=== PATIENT | male | born 1960 | race Caucasian/White ===

== ENCOUNTER 2020-01-13 13:33 | Inpatient (IN) | payer MEDICAID, SELFPAY ==
[2020-01-13 13:34] VITALS: BP 141/87; PULSE 97; RESP 18; TEMP 36.7; O2SAT 97; BMI 20.6
[2020-01-13 14:30] LABS: Add Urine Microscopic? NO
[2020-01-13 14:34] LABS: Urine Appearance Clear (CLEAR); Urine Color Yellow (Yellow)
[2020-01-13 14:35] LABS: Bilirubin Urine Neg (NEGATIVE); Blood Urine Neg (Negative); Glucose Urine UA Norm (Normal); Ketones Urine Negative (Negative); Leukocyte Esterase Urine Negative (Negative); Nitrate Urine Negative (Negative); Protein Urine Neg (Negative); Specific Gravity, Urine 1.015 (1.005-1.030); Urobilinogen Urine Norm (Negative); pH Urine 5 (5-7)
[2020-01-13 14:42] LABS: Amphetamines Screen Urine Negative (Negative); Barbiturates Screen Urine Negative (Negative); Benzodiazepines Screen Urine Negative (Negative); Cocaine Screen Urine Negative (Negative); Opiate Screen Urine Negative (Negative); PCP Screen Urine Negative (Negative); THC Screen Urine Positive (Negative)
[2020-01-13 14:53] LABS: Basophils # 0.1 10^3/uL (0.0-0.1); Basophils % 0.7 %; Eosinophils # 0.3 10^3/uL (0.0-0.8); Eosinophils % 1.8 %; Hematocrit 46.6 % (42.0-52.0); Hemoglobin 15.1 g/dL (11.7-16.6); Lymphocytes # 2.1 10^3/uL (0.8-4.8); Lymphocytes % 15.4 %; Mean Corpuscular HGB Conc 32.4 g/dL (30.0-36.0); Mean Corpuscular Hemoglobin 31.3 pg (28.0-34.0); Mean Corpuscular Volume 96.7 fL (80-94); Mean Platelet Volume 10.3 fL (7.4-10.4); Monocytes # 0.9 10^3/uL (0.2-0.9); Monocytes % 6.5 %; Neutrophils # 10.23 10^3/uL (1.8-7.7); Neutrophils % 75.2 %; Nucleated Red Blood Cells % 0 %; Platelet Count 303 10^3/cmm (130-400); Red Blood Count 4.82 10^6/uL (4.1-5.3); Red Cell Distribution Width 12.2 % (12.1-15.1); White Blood Count 13.6 10^3/uL (4.0-10.0)
[2020-01-13 15:14] LABS: Alanine Aminotransferase 23 U/L (0-41); Alkaline Phosphatase 87 IU/L (40-130); Anion Gap 14.2 (5-19); Aspartate Amino Transferase 22 U/L (0-40); Blood Urea Nitrogen 9 mg/dL (6-20); Calcium 9.3 mg/dL (8.5-10.5); Carbon Dioxide 27 mmol/L (22-29); Chloride 102 mmol/L (98-107); Creatinine Clr Calc Pharmacy 106.8314; Globulin 3.2 g/dL (1.3-4.6); Glomerular Filtration Rate 99.6 mL/min (90-130); Glucose 91 mg/dL (65-115); Osmolality Calculated 284 mOsm/kg (285-295); Potassium 4.2 mmol/L (3.5-5.1); Sodium 139 mmol/L (136-145); Total Bilirubin 0.6 mg/dL (0.15-1.2); Total Protein 7.2 g/dL (6.6-8.7)
[2020-01-13 15:22] LABS: Acetaminophen < 5.0 ug/mL (10-30); Alcohol Level < 10 mg/dL (0-10); Salicylate < 0.3 mg/dL (3-10)
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
[2020-01-13] MEDS: diclofenac 75 mg DR Tablet PO (15:39)
[2020-01-13 16:35] VITALS: BP 129/68; PULSE 76; RESP 18; O2SAT 97
[2020-01-13 16:39] VITALS: BP 129/68; PULSE 76; RESP 18; TEMP 36.7
[2020-01-13 19:43] VITALS: BP 119/79; PULSE 80; RESP 18; TEMP 36.8; O2SAT 97
[2020-01-13] MEDS: acetaminophen 325 mg Tablet 650 MG PO (21:00)
[2020-01-13] MEDS: warfarin 5 mg Tablet PO (22:02)
[2020-01-13] MEDS: atorvastatin 40 mg Tablet PO (22:03)
[2020-01-14 06:00] VITALS: BP 86/54; PULSE 71; RESP 16; TEMP 37; O2SAT 98
[2020-01-14] MEDS: metoprolol succinate ER (24 HR) 50 mg Tablet PO (08:38)
[2020-01-14] MEDS: aspirin 81 mg Chew Tablet PO (08:38)
[2020-01-14] MEDS: acetaminophen 325 mg Tablet 650 MG PO ×2 (10:35→15:13)
[2020-01-14] MEDS: fixodent 39 gm Tube 1 APPLIC DENTAL (10:37)
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
[2020-01-14 14:00] VITALS: BP 108/72; PULSE 93; RESP 19; TEMP 36.7; O2SAT 96
[2020-01-14] MEDS: atorvastatin 40 mg Tablet PO (21:09)
[2020-01-14] MEDS: warfarin 5 mg Tablet PO (21:10)
[2020-01-14] MEDS: trazodone 50 mg Tablet PO (21:10)
[2020-01-14] MEDS: hyDROXYzine 25 mg Capsule 50 MG PO (21:10)
[2020-01-14 21:28] VITALS: BP 104/61; PULSE 66; RESP 17; TEMP 37.2; O2SAT 96
[2020-01-14 21:30] LABS: INR 1.46 (0.8-1.2)
[2020-01-15 06:00] VITALS: BP 114/64; PULSE 62; RESP 17; TEMP 36.9; O2SAT 95
[2020-01-15] MEDS: metoprolol succinate ER (24 HR) 50 mg Tablet PO (08:08)
[2020-01-15] MEDS: aspirin 81 mg Chew Tablet PO (08:08)
[2020-01-15] MEDS: acetaminophen 325 mg Tablet 650 MG PO ×2 (09:44→18:12)
[2020-01-15 14:00] VITALS: BP 128/84; PULSE 67; RESP 18; TEMP 37; O2SAT 97
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
[2020-01-15 20:14] VITALS: BP 104/67; PULSE 69; RESP 18; TEMP 36.6; O2SAT 96
[2020-01-15] MEDS: atorvastatin 40 mg Tablet PO (20:25)
[2020-01-16 06:00] VITALS: BP 111/71; PULSE 69; RESP 16; TEMP 36.5; O2SAT 96
[2020-01-16] MEDS: metoprolol succinate ER (24 HR) 50 mg Tablet PO (08:01)
[2020-01-16] MEDS: aspirin 81 mg Chew Tablet PO (08:01)
--- NOTE | 2020-01-16 13:54 | P.PN_ITS ---
Subjective NPU Subjective: Interval history: Sukhwinder presents today reporting that he is doing okay. He had some very in depth and significant conversations with social work team and the therapist regarding his circumstances and some significant challenges that exists in his life in relation to his relationship with his daughter and them reconciling, issues that they have had in the past secondary to his behaviors which he takes responsibility for. He is very contrite and is desirous of a place where he can unpack this in a healthy safe way. He is reporting some diminishing of his suicidal thinking, but otherwise he is feeling very pessimistic about his options moving forward and probably with good reason. Mental Status Exam MSE Comments: This is a slender, white male, looking younger than his stated age, with adequate dress and grooming, and limited eye contact. No abnormal movements, except for improving psychomotor retardation. Cooperative with exam in no acute distress. Speech was more normal rate and volume. Mood described as okay; affect congruent. Thought process, organized. Thought content: patient reports that he feels suicidal all the time, but today isn't too bad, he endorse s that he feels less homicidal, there were no delusions reported or noted, he denied any auditory or visual hallucinations. Attention and concentration were intact and memory appeared reliable, but none were formally tested. He is alert and oriented times three. Insight and judgment are limited, but improving. Impulse control is improving. Vitals/I&O/Wt Last Vital Signs Temp 97.9 F 01/16/20 21:18 Pulse 63 01/16/20 21:18 Resp 19 H 01/16/20 21:18 BP 111/75 01/16/20 21:18 Pulse Ox 97 01/16/20 21:18 Data NPU : 01/13/20 14:39 01/13/20 14:39 A&P Additional A&P Information (1) Suicidal ideation: (2) Major depressive disorder: (3) Anxiety: (4) PTSD (post-traumatic stress disorder): This is a 59 year old, white male, with a reported six year history of depression with some likely post-traumatic stress disorder symptoms that dated further back, but he denies any treatment, he denies any success with medication and is resistant to taking medication, with no desire to start medication and hope to be referred to a mental health facility that could provide him a medical terminologist therapist, and obviously a need for some stabilization at some kind of skilled nursing or other living arrangement. Continue current medication and continue to offer antidepressant therapy. Encourage individual, group, and milieu therapy. Continue q-15 minute checks for safety. Recommend sober living treatment at the highest level of care to which he is joey ling to commit Involuntary Hold Information 96 Hour Hold: 96 Hour Involuntary Admission: No Attestations NPU Medical Necessity Statement*: Inpatient hospitalization is medically necessary and the clinically appropriate intervention at this time. We will monitor medications and make adjustments as indicated and continue to offer appropriate medications. Likely length of stay is 1-3 days. Coding Level of Care Code Acute Veterinary Receptionist for Christel Fabian
[2020-01-16 14:00] VITALS: BP 114/76; PULSE 71; RESP 18; TEMP 36.6; O2SAT 96
[2020-01-16 21:18] VITALS: BP 111/75; PULSE 63; RESP 19; TEMP 36.6; O2SAT 97
[2020-01-17] MEDS: atorvastatin 40 mg Tablet PO ×2 (01:48→20:19)
[2020-01-17] MEDS: warfarin 5 mg Tablet PO ×2 (01:49→20:19)
--- NOTE | 2020-01-17 01:50 | PC.NURSE ---
meds were given at 2100 they did not scan / mis-scan.
[2020-01-17 06:00] VITALS: BP 105/60; PULSE 68; RESP 15; TEMP 36.8; O2SAT 97
[2020-01-17] MEDS: aspirin 81 mg Chew Tablet PO (08:47)
[2020-01-17] MEDS: metoprolol succinate ER (24 HR) 50 mg Tablet PO (08:47)
--- NOTE | 2020-01-17 10:44 | PM.NPN ---
Subjective NPU Subjective: Interval history: Sukhwinder presents today reporting that he has worked with the treatment team and that there are not a lot of options out there. He is fairly frustrated, but understands that is a situation that he is in. We discussed a plan to continue attempts to find an option today, but that if all else fails tomorrow, we will discharge him to a group home in [place]. We discussed the importance of him following up. We once again discussed the risks, benefits, and alternatives of trying a medication and he understood and again reinforced his position on not having medication, though he did understand and agree to proceed as is documented in this note. Mental Status Exam MSE Comments: This is a slender, white male, looking younger than his stated age, with adequate dress and grooming, and limited eye contact. No abnormal movements, except for improving psychomotor retardation. Cooperative with exam in no acute distress. Speech was more normal rate and volume. Mood described as better; affect congruent. Thought process, organized. Thought content: patient reports that he feels suicidal all the time, but much less, he denied homicidal ideation, there were no delusions reported or noted, he denied any auditory or visual hallucinations. Attention and concentration were intact and memory appeared reliable, but none were formally tested. He is alert and oriented times three. Insight and judgment are limited, but improving. Impulse control is improving. Vitals/I&O/Wt Last Vital Signs Temp 98.3 F 01/17/20 06:00 Pulse 68 01/17/20 06:00 Resp 15 01/17/20 06:00 BP 105/60 01/17/20 06:00 Pulse Ox 97 01/17/20 06:00 Data NPU : 01/13/20 14:39 01/13/20 14:39 A&P Additional A&P Information (1) Suicidal ideation: (2) Major depressive disorder: (3) Anxiety: (4) PTSD (post-traumatic stress disorder): This is a 59 year old, white male, with a reported six year history of depression with some likely post-traumatic stress disorder symptoms that dated further back, but he denies any treatment, he denies any success with medication and is resistant to taking medication, with no desire to start medication and hope to be referred to a mental health facility that could provide him a care home therapist, and obviously a need for some stabilization at some kind of group home or other living arrangement. Continue current medication and continue to offer antidepressant therapy. Encourage individual, group, and milieu therapy. Continue q-15 minute checks for safety. Recommend sober living treatment at the highest level of care to which he is willing to commit, or other program to assist with his emotional challenges. Involuntary Hold Information 96 Hour Hold: 96 Hour Involuntary Admission: No Attestations NPU Medical Necessity Statement*: Inpatient hospitalization is medically necessary and the clinically appropriate intervention at this time. We will monitor medications and make adjustments as indicated and continue to offer appropriate medications. Likely length of stay is 1-2 days. Plan for discharge tomorrow. Coding Level of Care Code Acute Fire Support Specialist for Christel Fabian
[2020-01-17 14:00] VITALS: BP 101/63; PULSE 76; RESP 18; TEMP 36.7; O2SAT 96
[2020-01-17 20:38] VITALS: BP 122/75; PULSE 70; RESP 15; TEMP 36.8; O2SAT 97
[2020-01-17] MEDS: alum-mag-hydroxide-sime 30 mL UDC PO (21:41)
[2020-01-18 06:00] VITALS: BP 137/92; PULSE 79; RESP 16; TEMP 36.7; O2SAT 96
[2020-01-18] MEDS: metoprolol succinate ER (24 HR) 50 mg Tablet PO (08:47)
[2020-01-18] MEDS: aspirin 81 mg Chew Tablet PO (08:47)
[2020-01-18 12:04] VITALS: BP 137/92; PULSE 79; RESP 16; TEMP 36.7; O2SAT 96
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
== END 2020-01-18 16:00 | disposition home or self-care (01) | DRG 880 ==
LOC: ER 15:41 → NP 16:00
PROVIDERS: Admitting Provider Psychiatry & Neurology Psychiatry; Emergency Provider Family Medicine; PCP Family Medicine; Visit Provider Psychiatry & Neurology Psychiatry
DX: F41.8 Other specified anxiety disorders (principal); R45.851 Suicidal ideations; F43.11 Post-traumatic stress disorder, acute; R45.850 Homicidal ideations; Z91.5 Personal history of self-harm; F17.210 Nicotine dependence, cigarettes, uncomplicated; Z79.01 Long term (current) use of anticoagulants; Z79.82 Long term (current) use of aspirin; I25.10 Atherosclerotic heart disease of native coronary artery without angina pectoris; Z95.1 Presence of aortocoronary bypass graft; I35.0 Nonrheumatic aortic (valve) stenosis
CPT/HCPCS: 12345; 36415; 80053; 80306; 80307; 81003; 85025; 85610; 99284

== ENCOUNTER 2020-10-07 09:35 | Outpatient (CLI) | payer MEDICAID, SELFPAY ==
--- NOTE | 2020-10-07 | XRR_ITS ---
PROCEDURE INFORMATION: Exam: XR Left Knee Exam date and time: 10/07/2020 10:17 AM Age: 59 years old Clinical indication: Pain; Knee; Bilateral; Additional info: Bilateral knee joint pain TECHNIQUE: Imaging protocol: XR Left knee. Views: 4 or more views. COMPARISON: No relevant prior studies available. FINDINGS: Bones/joints: Prominent chondrocalcinosis, with mild degenerative change and small joint effusion. Soft tissues: Unremarkable. Other findings: Anatomic alignment. XR/XR knee LT 4V [id number] IMPRESSION: Prominent chondrocalcinosis, with mild degenerative change and small joint effusion.
--- NOTE | 2020-10-07 | XRR_ITS ---
PROCEDURE INFORMATION: Exam: XR Right Knee Exam date and time: 10/07/2020 10:17 AM Age: 59 years old Clinical indication: Pain; Knee; Bilateral; Additional info: Bilateral knee joint pain TECHNIQUE: Imaging protocol: XR Right knee. Views: 3 views. COMPARISON: No relevant prior studies available. FINDINGS: Bones/joints: Prominent chondrocalcinosis, along with mild degenerative change and small joint effusion. Soft tissues: Surgical clips. Other findings: Anatomic alignment. XR/XR knee RT 4V [id number] IMPRESSION: Prominent chondrocalcinosis, along with mild degenerative change and small joint effusion.
== END 2020-10-07 09:36 | disposition home or self-care (01) ==
LOC: RAD 09:44
PROVIDERS: PCP Family Medicine; Visit Provider Family Medicine
DX: M25.561 Pain in right knee (principal); M25.562 Pain in left knee; M11.261 Other chondrocalcinosis, right knee; M11.262 Other chondrocalcinosis, left knee
CPT/HCPCS: 73564

== ENCOUNTER 2020-10-18 11:05 | Outpatient (CLI) | payer MEDICAID, SELFPAY ==
--- NOTE | 2020-10-18 11:09 | CT_ITS ---
WS: [id number] LDCT LUNG CANCER SCREENING TECHNIQUE: Noncontrast CT of the chest with coronal and sagittal reformatted images. CLINICAL INFORMATION: NICOTINE DEPENDENCE COMPARISON: None. DLP: 60.92 mGy.cm DIvol: 1.[address] scans at [facility] use at least one of these dose optimization techniques: automat ed exposure control; mA and/or kV adjustment per patient size (includes targeted exams where dose is matched to clinical indication); or iterative reconstruction. FINDINGS: Mild chronic emphysematous changes. No suspicious pulmonary parenchymal opacities. No acute pulmonary infiltrates. Sternotomy. Aortic calcification. No mediastinal or hilar lymphadenopathy. No axillary lymphadenopathy. Right renal cyst partially visualized. Adrenal glands are normal. CT/CT lung screening [id number] IMPRESSION: LUNG-RADS: 1-Negative FOLLOW UP: 12 Month: Continue annual screening with LDCT
== END 2020-10-18 11:06 | disposition home or self-care (01) ==
LOC: RAD 11:07
PROVIDERS: PCP Family Medicine; Visit Provider Family Medicine
DX: Z12.2 Encounter for screening for malignant neoplasm of respiratory organs (principal); F17.210 Nicotine dependence, cigarettes, uncomplicated
CPT/HCPCS: 71271

== ENCOUNTER 2020-12-24 01:49 | Emergency (ER) | payer MEDICAID, SELFPAY ==
[2020-12-24 02:16] VITALS: BP 132/87; PULSE 115; RESP 18; TEMP 36.7; O2SAT 94; BMI 21.7
[2020-12-24 03:00] LABS: Specific Gravity, Urine 1.005 (1.005-1.030); Urine Appearance Cloudy (CLEAR); Urine Color Red (Yellow); pH Urine 6.5 (5-7)
[2020-12-24 03:01] LABS: Add Urine Culture? Yes; Add Urine Microscopic? YES; Bacteria Urine TRACE /hpf; Bilirubin Urine Neg (Negative); Blood Urine 3+ (Negative); Glucose Urine UA Norm (Normal); Ketones Urine Negative (Negative); Leukocyte Esterase Urine Negative (Negative); Nitrate Urine Negative (Negative); Protein Urine 2+ (Negative); RBC Urine TOO NUMEROUS TO CNT /hpf (0-2); Squamous Epithelial Cell Urine 0-4 /hpf (0-5); Urobilinogen Urine Norm (Negative); WBC Urine 0-4 /hpf (0-5)
--- NOTE | 2020-12-24 03:04 | CTR_ITS ---
PROCEDURE INFORMATION: Exam: CT Abdomen And Pelvis Without Contrast Exam date and time: 12/24/2020 3:04 AM Age: 60 years old Clinical indication: Abdominal pain; Flank; Right; Additional info: RT flank pain, hematuria TECHNIQUE: Imaging protocol: Computed tomography of the abdomen and pelvis without contrast. Radiation optimization: All CT scans at this facility use at least one of these dose optimization techniques: automated exposure control; mA and/or kV adjustment per patient size (includes targeted exams where dose is matched to clinical indication); or iterative reconstruction. COMPARISON: CT lung screening [id number] 10/18/2020 11:35 AM RADIATION DOSE METRICS: Total DLP (mGy-cm): 670.01 FINDINGS: Liver: Normal. No mass. Gallbladder and bile ducts: The gallbladder is partially contracted. No biliary ductal dilatation. No calculi. Pancreas: Normal. No ductal dilation. Spleen: Normal. No splenomegaly. Adrenal glands: Normal. No mass. Kidneys and ureters: Mild right hydronephrosis and hydroureter. Right renal 4.1 mm probable benign cyst. Stomach and bowel: Sigmoid, descending and distal transverse colonic diverticula are present without evidence of diverticulitis. Appendix: The vermiform appendix is normal. Intraperitoneal space: No free air. No significant fluid collection. Vasculature: The iliac arteries show moderate bilateral atherosclerotic calcifications without evidence of aneurysm. Atherosclerotic calcifications are present involving the RCA coronary artery. Moderate aortic atherosclerotic calcification with infrarenal abdominal aortic ectasia to 2.7 cm. Lymph nodes: No enlarged lymph nodes. Urinary bladder: Unremarkable as visualized. Reproductive: The prostate gland demonstrates nonspecific parenchymal calcifications. Bones/joints: L5-S1 moderate spondylosis. Diffuse osteopenia. Soft tissues: Unremarkable. CT/CT kidney stone [id number] IMPRESSION: 1. Mild right hydronephrosis and hydroureter. No obstructing calculus identified. Differential diagnosis includes recently passed calculi, and non-opaque obstructing material (hemorrhage, purulence, nonopaque calculus). 2. Right renal probable benign cyst. No follow-up imaging is recommended. 3. Diverticulosis. 4. Chronic calcific prostatitis. 5. Coronary atherosclerosis. COMMENTS: Consistent with the [employer]'s Incidental Findings Committee white paper (J Am Shannan Radiol 2018): Any incidental renal lesion less than 1 cm or classified as too small to characterize, or any incidental cystic renal lesion characterized as simple-appearing, is likely benign. No follow-up imaging is recommended for these lesions per consensus recommendations based on imaging criteria. Radiation Dose CTDIVOL = (mGy): DLP = 670.01 (mGy-cm)
[2020-12-24 04:39] LABS: Basophils # 0.1 10^3/uL (0.0-0.1); Basophils % 0.8 %; Eosinophils # 0.3 10^3/uL (0.0-0.8); Eosinophils % 2.5 %; Hematocrit 45.9 % (42.0-52.0); Hemoglobin 14.8 g/dL (11.7-16.6); Lymphocytes # 2.1 10^3/uL (0.8-4.8); Lymphocytes % 15.9 %; Mean Corpuscular HGB Conc 32.2 g/dL (30.0-36.0); Mean Corpuscular Hemoglobin 30.9 pg (28.0-34.0); Mean Corpuscular Volume 95.8 fL (80-94); Monocytes # 0.9 10^3/uL (0.2-0.9); Neutrophils # 9.79 10^3/uL (1.8-7.7); Neutrophils % 73.2 %; Nucleated Red Blood Cells % 0 %; Platelet Count 572 10^3/cmm (130-400); Red Blood Count 4.79 10^6/uL (4.1-5.3); Red Cell Distribution Width 12.5 % (12.1-15.1); White Blood Count 13.4 10^3/uL (4.0-10.0)
[2020-12-24 04:48] LABS: INR 4.33 (0.8-1.2)
[2020-12-24 04:49] LABS: Partial Thromboplastin Time 68.5 SECONDS (23.9-36.7)
[2020-12-24 04:54] LABS: Alanine Aminotransferase 31 U/L (0-41); Albumin Level 3.3 g/dL (3.5-5.2); Alkaline Phosphatase 119 IU/L (40-130); Anion Gap 12.7 (5-19); Aspartate Amino Transferase 29 U/L (0-40); Blood Urea Nitrogen 10 mg/dL (6-20); Calcium 8.6 mg/dL (8.5-10.5); Carbon Dioxide 27 mmol/L (22-29); Chloride 101 mmol/L (98-107); Globulin 4.4 g/dL (1.3-4.6); Glomerular Filtration Rate 115.8 mL/min (90-130); Glucose 105 mg/dL (65-115); Osmolality Calculated 281 mOsm/kg (285-295); Potassium 4.7 mmol/L (3.5-5.1); Sodium 136 mmol/L (136-145); Total Bilirubin 0.2 mg/dL (0.15-1.2); Total Protein 7.7 g/dL (6.6-8.7)
--- NOTE | 2020-12-24 04:54 | W.ED.BACK ---
Documented by User: Aristides Bermudez DO 12/29/20 15:21 HPI - Back Pain/Injury General: Chief Complaint: Back Pain/Injury Stated Complaint: Urinating Blood\Pain RT Side Time Seen by Provider: 12/24/20 03:05 History of Present Illness: HPI Narrative: 60-year-old male presents emergency room with complaint of right flank pain and hematuria that began around midnight this evening. Patient is on Coumadin. Denies any fever sweats or chills. MD elicited complaint: back pain Onset (ago): hour(s) Timing: constant Severity: moderate Quality: sharp Radiation: none Exacerbating factors: none Relieving factors: none Associated symptoms: Reports abdominal pain and hematuria; Deny arthralgias, chills, change in bowel habits, difficulty walking, dysuria, fatigue, fecal incontinence, fever(s), myalgias, nausea, numbness, syncope, tingling/numbness/burning, urinary frequency, urinary urgency, vomiting or weakness Review of Systems Const: Denies: fever(s), chills or fatigue ENMT: Denies: throat pain, ear or mastoid pain, nasal discharge or nasal congestion Card: Denies: syncope Resp: Denies: dyspnea, productive cough or non-productive cough GI: Reports: abdominal pain; Denies: nausea, vomiting, fecal incontinence or change in bowel habits : Reports: hematuria; Denies: dysuria or urinary urgency Skin/Breast: Denies: rash or pruritus Neuro: Denies: difficulty walking PFSH ED PFSH: Medical History Aortic stenosis Coronary artery disease Surgical History H/O aortic valvuloplasty Hx of CABG Physical Exam Const: COMMON NORMALS: no acute distress GENERAL APPEARANCE: cooperative and comfortable ORIENTATION/CONSCIOUSNESS: Yes awake, Yes oriented to person, Yes oriented to place and Yes oriented to time HENMT: COMMON NORMALS: normocephalic, atraumatic and hearing grossly normal bilaterally HEAD & SCALP: normocephalic and atraumatic Neck/C-Spine: COMMON NORMALS: no JVD Resp: COMMON NORMALS: normal respiratory effort, No retractions, No use of accessory muscles and clear to auscultation bilaterally AUSCULTATION: clear to auscultation bilaterally Cardio: COMMON NORMALS: no JVD, regular rate, regular rhythm and No murmurs present (Cardio) RATE: regular rate RHYTHM: regular rhythm GI: COMMON NORMALS: Soft to palpation and No hepatosplenomegaly present AUSCULTATION: Yes normoactive bowel sounds PALPATION: Yes Soft to palpation, No Tenderness to palpation present (GI), No Guarding due to palpation present (GI) and Yes No hepatosplenomegaly present Extremity: COMMON NORMALS: normal to inspection, capillary refill normal, no clubbing, cyanosis or edema, no calf tenderness and no pedal edema Neuro: SENSORIUM/ORIENTATION: Yes oriented to person, Yes oriented to place and Yes oriented to time Skin: COMMON NORMALS: no rashes or lesions noted GENERAL SKIN EXAM: no rashes or lesions noted Course Vital Signs: Vital signs: Vital Signs Temperature 98.1 F 12/24/20 02:16 Pulse Rate 115 H 12/24/20 08:08 Respiratory Rate 18 12/24/20 02:16 Blood Pressure 132/87 12/24/20 08:08 Pulse Oximetry 94 12/24/20 08:08 MDM - Back Pain/Injury MDM Narrative: Medical decision making narrative: Turned over Dr. Barraza at change shift see his notes from diagnosis disposition Lab Data: Labs: Lab Results 12/24/20 12/24/20 12/24/20 Range/Units 02:33 04:28 04:28 WBC 13.4 H (4.0-10.0) 10^3/ uL RBC 4.79 (4.1-5.3) 10^6/u L Hgb 14.8 (11.7-16.6) g/dL Hct 45.9 (42.0-52.0) % MCV 95.8 H (80-94) fL MCH 30.9 (28.0-34.0) pg MCHC 32.2 (30.0-36.0) g/dL RDW 12.5 (12.1-15.1) % Plt Count 572 H (130-400) 10^3/c mm MPV 10.0 (7.4-10.4) fL Neut % (Auto) 73.2 % Lymph % (Auto) 15.9 % [place] % (Auto) 7.0 % Eos % (Auto) 2.5 % Baso % (Auto) 0.8 % Neut # (Auto) 9.79 H (1.8-7.7) 10^3/u L Lymph # (Auto) 2.1 (0.8-4.8) 10^3/u L [place] # (Auto) 0.9 (0.2-0.9) 10^3/u L Eos # (Auto) 0.3 (0.0-0.8) 10^3/u L Baso # (Auto) 0.1 (0.0-0.1) 10^3/u L Nucleated RBC % (a uto) 0 % Nucleated RBCs # 0.0 /100WBC PT 42.10 H (12.1-14.9) SECO NDS INR 4.33 H (0.8-1.2) APTT 68.5 H (23.9-36.7) SECO NDS Sodium (136-145) mmol/L Potassium (3.5-5.1) mmol/L Chloride (98-107) mmol/L Carbon Dioxide (22-29) mmol/L Anion Gap (5-19) BUN (6-20) mg/dL Creatinine (0.7-1.2) mg/dL GFR Calculation (90-130) mL/min Glucose (65-115) mg/dL Calculated Osmolal ity (285-295) mOsm/k g Calcium (8.5-10.5) mg/dL Total Bilirubin (0.15-1.2) mg/dL AST (0-40) U/L ALT (0-41) U/L Alkaline Phosphata se (40-130) IU/L Total Protein (6.6-8.7) g/dL Albumin (3.5-5.2) g/dL Globulin (1.3-4.6) g/dL Urine Color Red (Yellow) Urine Appearance Cloudy (CLEAR) Urine pH 6.5 (5-7) Ur Specific Gravit y 1.005 (1.005-1.030) Urine Protein 2+ H (Negative) Urine Glucose (UA) Norm (Normal) Urine Ketones Negative (Negative) Urine Blood 3+ H (Negative) Urine Nitrate Negative (Negative) Urine Bilirubin Neg (Negative) Urine Urobilinogen Norm (Negative) mg/dL Ur Leukocyte Deanna ase Negative (Negative) Urine RBC Too numerous to c nt H (0-2) /hpf Urine WBC 0-4 H (0-5) /hpf Ur Squamous Epith Cells 0-4 H (0-5) /hpf Amorphous Sediment Not Reportable Urine Bacteria Trace (NONE) /hpf 12/24/20 Range/Units 04:28 WBC (4.0-10.0) 10^3/ uL RBC (4.1-5.3) 10^6/u L Hgb (11.7-16.6) g/dL Hct (42.0-52.0) % MCV (80-94) fL MCH (28.0-34.0) pg MCHC (30.0-36.0) g/dL RDW (12.1-15.1) % Plt Count (130-400) 10^3/c mm MPV (7.4-10.4) fL Neut % (Auto) % Lymph % (Auto) % [place] % (Auto) % Eos % (Auto) % Baso % (Auto) % Neut # (Auto) (1.8-7.7) 10^3/u L Lymph # (Auto) (0.8-4.8) 10^3/u L [place] # (Auto) (0.2-0.9) 10^3/u L Eos # (Auto) (0.0-0.8) 10^3/u L Baso # (Auto) (0.0-0.1) 10^3/u L Nucleated RBC % (a uto) % Nucleated RBCs # /100WBC PT (12.1-14.9) SECO NDS INR (0.8-1.2) APTT (23.9-36.7) SECO NDS Sodium 136 (136-145) mmol/L Potassium 4.7 (3.5-5.1) mmol/L Chloride 101 (98-107) mmol/L Carbon Dioxide 27 (22-29) mmol/L Anion Gap 12.7 (5-19) BUN 10 (6-20) mg/dL Creatinine 0.7 (0.7-1.2) mg/dL GFR Calculation 115.8 (90-130) mL/min Glucose 105 (65-115) mg/dL Calculated Osmolal ity 281 L (285-295) mOsm/k g Calcium 8.6 (8.5-10.5) mg/dL Total Bilirubin 0.2 (0.15-1.2) mg/dL AST 29 (0-40) U/L ALT 31 (0-41) U/L Alkaline Phosphata se 119 (40-130) IU/L Total Protein 7.7 (6.6-8.7) g/dL Albumin 3.3 L (3.5-5.2) g/dL Globulin 4.4 (1.3-4.6) g/dL Urine Color (Yellow) Urine Appearance (CLEAR) Urine pH (5-7) Ur Specific Gravit y (1.005-1.030) Urine Protein (Negative) Urine Glucose (UA) (Normal) Urine Ketones (Negative) Urine Blood (Negative) Urine Nitrate (Negative) Urine Bilirubin (Negative) Urine Urobilinogen (Negative) mg/dL Ur Leukocyte Deanna ase (Negative) Urine RBC (0-2) /hpf Urine WBC (0-5) /hpf Ur Squamous Epith Cells (0-5) /hpf Amorphous Sediment Urine Bacteria (NONE) /hpf Discharge Plan Discharge Patient Disposition: Home Clinical Impression: Kidney stone, Elevated INR Condition: Stable Prescriptions: No Action warfarin 7.5 mg Tablet 7.5 mg PO MoFr@2100 30 Days Qty: 9 RF: 1 atorvastatin 40 mg tablet 40 mg PO DAILY 30 Days Qty: 30 RF: 1 metoprolol succinate 50 mg tablet extended release 24 hr 50 mg PO DAILY 30 Days Qty: 30 RF: 1 warfarin 5 mg tablet See Rx Instructions .ROUTE .COMPLEX 30 Days Qty: 22 RF: 1 aspirin 81 mg Tablet,Chewable 81 mg PO DAILY 30 Days Qty: 30 RF: 1 Discharge Orders: Discharge ED (Routine); Ordered 12/24/20 Ordered By: Bj Barraza Referrals: Ulises Gonzalez MD [Primary Care Provider] - Discharge Diet: Advance as tolerated Discharge Activity: Resume usual activity Patient Instructions: Opioid Safety Activity Restrictions/Additional Instructions: Encourage p.o. fluids. Hold Coumadin dose tonight and tomorrow take half dose. Follow-up with primary care physician for an INR check within 3 days. Continue all other home medications. Sign Out Sign Out Data: Patient Sign Out occurred on 12/24/20 at 06:11. Patient's care was discussed, and care was transferred from to Bj Barraza MD. Coding Level of Care Code ED Microfilming Document Preparer for Christel Fwd Documented by User: Bj Barraza MD 12/24/20 07:42 HPI - Back Pain/Injury General: Chief Complaint: Back Pain/Injury Stated Complaint: Urinating Blood\Pain RT Side Time Seen by Provider: 12/24/20 03:05 History of Present Illness: HPI Narrative: This is a 60-year-old male with presented to the emergency department complaining of flank pain. [facility] ED PFSH: Medical History Aortic stenosis Coronary artery disease Surgical History H/O aortic valvuloplasty Hx of CABG Course Reevaluation(s): Reevaluation #1: I did discuss at length with patient about findings. Consistent with recent passage of a kidney stone. Patient is pain-free at this time. Patient's INR is elevated. Patient will hold Coumadin for 24 hours within the will take one half dose on second day and then follow-up with primary care physician for repeat INR. Patient will be discharged home patient states understanding. Time: 07:38 Vital Signs: Vital signs: Vital Signs Temperature 98.1 F 12/24/20 02:16 Pulse Rate 115 H 12/24/20 08:08 Respiratory Rate 18 12/24/20 02:16 Blood Pressure 132/87 12/24/20 08:08 Pulse Oximetry 94 12/24/20 08:08 MDM - Back Pain/Injury MDM Narrative: Medical decision making narrative: I did discuss at length with patient about findings. Consistent with recent passage of a kidney stone. Patient is pain-free at this time. Patient's INR is elevated. Patient will hold Coumadin for 24 hours within the will take one half dose on second day and then follow-up with primary care physician for repeat INR. Patient will be discharged home patient states understanding. Medical Records: Attestation: I reviewed the patient's medical records. Lab Data: Attestation: I reviewed the patient's lab results. Labs: Lab Results 12/24/20 12/24/20 12/24/20 Range/Units 02:33 04:28 04:28 WBC 13.4 H (4.0-10.0) 10^3/ uL RBC 4.79 (4.1-5.3) 10^6/u L Hgb 14.8 (11.7-16.6) g/dL Hct 45.9 (42.0-52.0) % MCV 95.8 H (80-94) fL MCH 30.9 (28.0-34.0) pg MCHC 32.2 (30.0-36.0) g/dL RDW 12.5 (12.1-15.1) % Plt Count 572 H (130-400) 10^3/c mm MPV 10.0 (7.4-10.4) fL Neut % (Auto) 73.2 % Lymph % (Auto) 15.9 % [place] % (Auto) 7.0 % Eos % (Auto) 2.5 % Baso % (Auto) 0.8 % Neut # (Auto) 9.79 H (1.8-7.7) 10^3/u L Lymph # (Auto) 2.1 (0.8-4.8) 10^3/u L [place] # (Auto) 0.9 (0.2-0.9) 10^3/u L Eos # (Auto) 0.3 (0.0-0.8) 10^3/u L Baso # (Auto) 0.1 (0.0-0.1) 10^3/u L Nucleated RBC % (a uto) 0 % Nucleated RBCs # 0.0 /100WBC PT 42.10 H (12.1-14.9) SECO NDS INR 4.33 H (0.8-1.2) APTT 68.5 H (23.9-36.7) SECO NDS Sodium (136-145) mmol/L Potassium (3.5-5.1) mmol/L Chloride (98-107) mmol/L Carbon Dioxide (22-29) mmol/L Anion Gap (5-19) BUN (6-20) mg/dL Creatinine (0.7-1.2) mg/dL GFR Calculation (90-130) mL/min Glucose (65-115) mg/dL Calculated Osmolal ity (285-295) mOsm/k g Calcium (8.5-10.5) mg/dL Total Bilirubin (0.15-1.2) mg/dL AST (0-40) U/L ALT (0-41) U/L Alkaline Phosphata se (40-130) IU/L Total Protein (6.6-8.7) g/dL Albumin (3.5-5.2) g/dL Globulin (1.3-4.6) g/dL Urine Color Red (Yellow) Urine Appearance Cloudy (CLEAR) Urine pH 6.5 (5-7) Ur Specific Gravit y 1.005 (1.005-1.030) Urine Protein 2+ H (Negative) Urine Glucose (UA) Norm (Normal) Urine Ketones Negative (Negative) Urine Blood 3+ H (Negative) Urine Nitrate Negative (Negative) Urine Bilirubin Neg (Negative) Urine Urobilinogen Norm (Negative) mg/dL Ur Leukocyte Deanna ase Negative (Negative) Urine RBC Too numerous to c nt H (0-2) /hpf Urine WBC 0-4 H (0-5) /hpf Ur Squamous Epith Cells 0-4 H (0-5) /hpf Amorphous Sediment Not Reportable Urine Bacteria Trace (NONE) /hpf 12/24/ Range/Units 04:28 WBC (4.0-10.0) 10^3/ uL RBC (4.1-5.3) 10^6/u L Hgb (11.7-16.6) g/dL Hct (42.0-52.0) % MCV (80-94) fL MCH (28.0-34.0) pg MCHC (30.0-36.0) g/dL RDW (12.1-15.1) % Plt Count (130-400) 10^3/c mm MPV (7.4-10.4) fL Neut % (Auto) % Lymph % (Auto) % [place] % (Auto) % Eos % (Auto) % Baso % (Auto) % Neut # (Auto) (1.8-7.7) 10^3/u L Lymph # (Auto) (0.8-4.8) 10^3/u L [place] # (Auto) (0.2-0.9) 10^3/u L Eos # (Auto) (0.0-0.8) 10^3/u L Baso # (Auto) (0.0-0.1) 10^3/u L Nucleated RBC % (a uto) % Nucleated RBCs # /100WBC PT (12.1-14.9) SECO NDS INR (0.8-1.2) APTT (23.9-36.7) SECO NDS Sodium 136 (136-145) mmol/L Potassium 4.7 (3.5-5.1) mmol/L Chloride 101 (98-107) mmol/L Carbon Dioxide 27 (22-29) mmol/L Anion Gap 12.7 (5-19) BUN 10 (6-20) mg/dL Creatinine 0.7 (0.7-1.2) mg/dL GFR Calculation 115.8 (90-130) mL/min Glucose 105 (65-115) mg/dL Calculated Osmolal ity 281 L (285-295) mOsm/k g Calcium 8.6 (8.5-10.5) mg/dL Total Bilirubin 0.2 (0.15-1.2) mg/dL AST 29 (0-40) U/L ALT 31 (0-41) U/L Alkaline Phosphata se 119 (40-130) IU/L Total Protein 7.7 (6.6-8.7) g/dL Albumin 3.3 L (3.5-5.2) g/dL Globulin 4.4 (1.3-4.6) g/dL Urine Color (Yellow) Urine Appearance (CLEAR) Urine pH (5-7) Ur Specific Gravit y (1.005-1.030) Urine Protein (Negative) Urine Glucose (UA) (Normal) Urine Ketones (Negative) Urine Blood (Negative) Urine Nitrate (Negative) Urine Bilirubin (Negative) Urine Urobilinogen (Negative) mg/dL Ur Leukocyte Deanna ase (Negative) Urine RBC (0-2) /hpf Urine WBC (0-5) /hpf Ur Squamous Epith Cells (0-5) /hpf Amorphous Sediment Urine Bacteria (NONE) /hpf Imaging Data^: CT Abd/Pel: Attestation: I personally reviewed and interpreted this imaging study as follows: Radiologist's impression: IMPRESSION: 1. Mild right hydronephrosis and hydroureter. No obstructing calculus identified. Differential diagnosis includes recently passed calculi, and non-opaque obstructing material (hemorrhage, purulence, nonopaque calculus). 2. Right renal probable benign cyst. No follow-up imaging is recommended. 3. Diverticulosis. 4. Chronic calcific prostatitis. 5. Coronary atherosclerosis. Discharge Plan Discharge Patient Disposition: Home Clinical Impression: Kidney stone, Elevated INR Condition: Stable Prescriptions: No Action warfarin 7.5 mg Tablet 7.5 mg PO MoFr@2100 30 Days Qty: 9 RF: 1 atorvastatin 40 mg tablet 40 mg PO DAILY 30 Days Qty: 30 RF: 1 metoprolol succinate 50 mg tablet extended release 24 hr 50 mg PO DAILY 30 Days Qty: 30 RF: 1 warfarin 5 mg tablet See Rx Instructions .ROUTE .COMPLEX 30 Days Qty: 22 RF: 1 aspirin 81 mg Tablet,Chewable 81 mg PO DAILY 30 Days Qty: 30 RF: 1 Discharge Orders: Discharge ED (Routine); Ordered 12/24/20 Ordered By: Bj Barraza Referrals: Ulises Gonzalez MD [Primary Care Provider] - Discharge Diet: Advance as tolerated Discharge Activity: Resume usual activity Patient Instructions: Opioid Safety Activity Restrictions/Additional Instructions: Encourage p.o. fluids. Hold Coumadin dose tonight and tomorrow take half dose. Follow-up with primary care physician for an INR check within 3 days. Continue all other home medications. Sign Out Sign Out Data: Patient Sign Out occurred on 12/24/20 at 06:11. Patient's care was discussed, and care was transferred from to Bj Barraza MD. Coding Level of Care Code ED Microfilming Document Preparer for Christel Fabian
--- NOTE | 2020-12-24 07:10 | PC.NURSE ---
Pt lying R-side, appears to be asleep, no distress noted, no needs identified, will continue to monitor.
[2020-12-24 08:08] VITALS: BP 132/87; PULSE 115; O2SAT 94
== END 2020-12-24 08:10 | disposition home or self-care (01) ==
PROVIDERS: Nurse Practitioner Family; Emergency Provider Emergency Medicine; PCP Family Medicine
DX: N20.0 Calculus of kidney (principal); R79.1 Abnormal coagulation profile; Z79.82 Long term (current) use of aspirin; Z79.01 Long term (current) use of anticoagulants
CPT/HCPCS: 74176; 80053; 81001; 85025; 85610; 85730; 87086; 99283

== ENCOUNTER 2021-04-20 19:11 | Emergency (ER) | payer MEDICAID, SELFPAY ==
[2021-04-20 19:13] VITALS: BP 159/95; PULSE 108; RESP 18; TEMP 20.5; O2SAT 95; BMI 21.7
--- NOTE | 2021-04-20 19:18 | W.ED.BACK ---
HPI - Back Pain/Injury General: Chief Complaint: Back Pain/Injury Stated Complaint: BACK PAIN Time Seen by Provider: 04/20/21 19:13 Source: patient and EMS Mode of arrival: EMS Limitations: no limitations History of Present Illness: HPI Narrative: 60-year-old male who states he woke up this morning with right-sided flank and back pain. He states pain is been sharp in nature and all day states that times the pain feels like it is inside but sometimes it feels like a spasm is worse with movement and touch. He states that he was told he had a kidney stone in the past never had any imaging. States pain is currently sharp in nature rates it an 8 out of 10 denies any vomiting or diarrhea denies any fever. Associated symptoms: Deny abdominal pain, chills, fever(s), nausea or vomiting Review of Systems Const: Denies: fever(s), chills, body aches or change in appetite Eyes: Denies: blurry vision or eye discomfort ENMT: Denies: throat pain or dental pain Card: Denies: chest pain Resp: Denies: dyspnea GI: Denies: abdominal pain, nausea, vomiting or diarrhea : Reports: flank pain Musc: Reports: back pain Skin/Breast: Denies: rash Neuro: Denies: headache(s) Psych: Denies: depression Mark/Lymph: Denies: easy bruising All/Imm: Denies: urticaria PFSH ED PFSH: Medical History Aortic stenosis Coronary artery disease Surgical History H/O aortic valvuloplasty Hx of CABG Physical Exam Const: COMMON NORMALS: no acute distress, patient oriented x3 and healthy appearing HENMT: COMMON NORMALS: normocephalic and atraumatic HEAD & SCALP: normocephalic and atraumatic Eye: COMMON NORMALS: Equal, round and reactive pupils present and EOMs intact bilaterally PUPIL: Yes Equal, round and reactive pupils present Neck/C-Spine: COMMON NORMALS: full ROM and supple Chest: COMMONS NORMALS: normal inspection of the chest and normal palpation of entire chest wall Resp: COMMON NORMALS: normal respiratory effort, No retractions, No use of accessory muscles and clear to auscultation bilaterally AUSCULTATION: clear to auscultation bilaterally Cardio: COMMON NORMALS: regular rate, regular rhythm and No murmurs present (Cardio) RATE: regular rate RHYTHM: regular rhythm GI: COMMON NORMALS: Normal to inspection, nondistended, normoactive bowel sounds present, Soft to palpation and no masses PALPATION: Yes Soft to palpation OTHER: Right lumbar and flank tenderness Extremity: COMMON NORMALS: normal to inspection and full ROM Neuro: COMMON NORMALS: patient oriented x3, moves all extremities and no focal motor deficits Psych: COMMON NORMALS: mental status grossly normal, Normal thought process present and cooperative THOUGHT PROCESS: Normal thought process present Skin: COMMON NORMALS: no rashes or lesions noted and no wounds GENERAL SKIN EXAM: no rashes or lesions noted Course Vital Signs: Vital signs: Vital Signs Temperature 98.9 F 04/20/21 19:42 Pulse Rate 80 04/20/21 22:01 Respiratory Rate 18 04/20/21 22:01 Blood Pressure 118/68 04/20/21 22:01 Pulse Oximetry 98 04/20/21 22:01 MDM - Back Pain/Injury MDM Narrative: Medical decision making narrative: Patient presents here with some flank and back pain likely muscular in nature as he is point tender on exam he does state to me now he did have a cough for the last 3 days could have strained his muscle from coughing. CT of his abdomen showed no acute findings signs of lower pneumonia he does have an elevated white count as well. We will start him on doxycycline along with pain meds he is to follow-up with PCP and return if worsening. Lab Data: Labs: Lab Results 04/20/21 04/20/21 04/20/21 19:40 19:40 20:24 WBC 15.0 10^3/uL H 10 ^3/uL (4.0-10.0) RBC 4.65 10^6/uL 10^6 /uL (4.1-5.3) Hgb 14.6 g/dL g/dL (11.7-16.6) Hct 42.6 % % (42.0-52.0) MCV 91.6 fl fl (80-94) MCH 31.4 pg pg (28.0-34.0) MCHC 34.3 g/dL g/dL (30.0-36.0) RDW 12.2 % % (12.1-15.1) Plt Count 339 10^3/cmm 10^3 /cmm (130-400) MPV 10.5 fL H fL (7.4-10.4) Neut % (Auto) 69.7 % % Lymph % (Auto) 19.4 % % [place] % (Auto) 8.3 % % Eos % (Auto) 1.5 % % Baso % (Auto) 0.7 % % Neut # (Auto) 10.47 10^3/uL H 1 0^3/uL (1.8-7.7) Lymph # (Auto) 2.9 10^3/uL 10^3/ uL (0.8-4.8) [place] # (Auto) 1.3 10^3/uL H 10^ 3/uL (0.2-0.9) Eos # (Auto) 0.2 10^3/uL 10^3/ uL (0.0-0.8) Baso # (Auto) 0.1 10^3/uL 10^3/ uL (0.0-0.1) Nucleated RBC % (a uto) 0 % % Nucleated RBCs # 0.0 /100WBC /100W BC Sodium 136 mmol/L mmol/L (136-145) Potassium 4.2 mmol/L mmol/L (3.5-5.1) Chloride 96 mmol/L L mmol/ L (98-107) Carbon Dioxide 28 mmol/L mmol/L (22-29) Anion Gap 16.2 (5-19) BUN 8 mg/dL mg/dL (6-20) Creatinine 0.7 mg/dL mg/dL (0.7-1.2) GFR Calculation 115.8 mL/min mL/m in (90-130) Glucose 92 mg/dL mg/dL (65-115) Calculated Osmolal ity 280 mOsm/kg L mOs m/kg (285-295) Calcium 9.5 mg/dL mg/dL (8.5-10.5) Total Bilirubin 0.3 mg/dL mg/dL (0.15-1.2) AST 19 U/L U/L (0-40) ALT 15 U/L U/L (0-41) Alkaline Phosphata se 93 IU/L IU/L (40-130) Total Protein 7.3 g/dL g/dL (6.6-8.7) Albumin 4.3 g/dL g/dL (3.5-5.2) Globulin 3.0 g/dL g/dL (1.3-4.6) Lipase 31 U/L U/L (13-60) Urine Color Yellow (Yellow) Urine Appearance Clear (CLEAR) Urine pH 5 (5-7) Ur Specific Gravit y 1.015 (1.005-1.030) Urine Protein Neg (Negative) Urine Glucose (UA) Norm (Normal) Urine Ketones Negative (Negative) Urine Blood 2+ H (Negative) Urine Nitrate Negative (Negative) Urine Bilirubin 1+ H (Negative) Urine Urobilinogen 1 mg/dL H mg/dL (Negative) Ur Leukocyte Deanna ase Negative (Negative) Urine RBC 10-15 /hpf H /hpf (0-2) Urine WBC 0-4 /hpf H /hpf (0-5) Ur Squamous Epith Cells 0-4 /hpf H /hpf (0-5) Amorphous Sediment Not Reportable Urine Bacteria Trace /hpf /hpf (NONE) Urine Mucus 2+ /hpf /hpf Imaging Data^: CT Abd/Pel: Attestation: I personally reviewed and interpreted this imaging study as follows: Radiologist's impression: [address] [address] [address] Scan Report Signed Patient: Jose Ontiveros Unit #: [id number] : 03/13/1993 Age/Sex: 28 / M ADM Date: 04/20/21 Loc: ER Room/Bed: Attending Dr: Ordering Provider/Ordering MD: Lorne Carrera MD Date of Service: 04/20/21 Procedure(s): CT head wo con* [id number] Accession Number(s): [id number] Report Number: [id number] PROCEDURE INFORMATION: Exam: CT Head Without Contrast Exam date and time: 04/20/2021 8:18 PM Age: 28 years old Clinical indication: Prior surgery; Surgery date: 1-6 months; Surgery type: Final Expense Agent shunt; Patient HX: HX of sarcoidosis C/O weakness TECHNIQUE: Imaging protocol: Computed tomography of the head without contrast. Radiation optimization: All CT scans at this facility use at least one of these dose optimization techniques: automated exposure control; mA and/or kV adjustment per patient size (includes targeted exams where dose is matched to clinical indication); or iterative reconstruction. COMPARISON: No relevant prior studies available. RADIATION DOSE METRICS: Total DLP (mGy-cm): 1069.07 FINDINGS: Tubes, catheters and devices: Left frontal SUPERVISOR PR[employer]ING [employer] STAMPING shunt catheter tip over the anterior horn left lateral ventricle. Brain: Probable right sublenticular cyst. Cerebral ventricles: No ventriculomegaly. Paranasal sinuses: Severe left maxillary sinus disease. Mild bilateral ethmoid sinus disease. Mastoid air cells: Visualized mastoid air cells are well aerated. 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 Soft tissues: Unremarkable. CT/CT head wo con* [id number] IMPRESSION: 1. Left frontal SUPER[employer] shunt catheter tip over the anterior horn left lateral ventricle. 2. Severe left maxillary sinus disease. 3. Mild bilateral ethmoid sinus disease. 4. 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 Radiation Dose CTDIVOL = (mGy): DLP = 1069.07 (mGy-cm) Dictated By: Cholo Bustos MD Signed By: Cholo Bustos MD Signed Date/Time: 04/20/212203 DD/ 17 EKG Data^: EKG 1: Attestation: I personally reviewed and interpreted this EKG as follows: EKG interpretation date: 04/20/21 EKG interpretation time: 19:59 Interpretation: nsr hr [address] or t wave abnormalities qrs 100 qtc 393 Discharge Plan Discharge Patient Disposition: Home Clinical Impression: Low back pain Pneumonia Qualifiers: Pneumonia type: due to unspecified organism Laterality: left Lung location: lower lobe of lung Qualified Code(s): J18.9 - Pneumonia, unspecified organism Condition: Stable Prescriptions: New hydrocodone-acetaminophen 5-325 mg tablet 1 tab PO Q6H PRN (Reason: pain) Qty: 14 RF: 0 doxycycline hyclate 100 mg tablet 100 mg PO BID 7 Days Qty: 14 RF: 0 No Action warfarin 7.5 mg Tablet 7.5 mg PO MoFr@2100 30 Days Qty: 9 RF: 1 atorvastatin 40 mg tablet 40 mg PO DAILY 30 Days Qty: 30 RF: 1 metoprolol succinate 50 mg tablet extended release 24 hr 50 mg PO DAILY 30 Days Qty: 30 RF: 1 warfarin 5 mg tablet See Rx Instructions .ROUTE .COMPLEX 30 Days Qty: 22 RF: 1 aspirin 81 mg Tablet,Chewable 81 mg PO DAILY 30 Days Qty: 30 RF: 1 Discharge Orders: Discharge ED (Routine); Ordered 04/20/21 Ordered By: Lorne Carrera Referrals: Ulises Gonzalez MD [Primary Care Provider] - 1-3 days Discharge Diet: Advance as tolerated Discharge Activity: Resume usual activity Patient Instructions: Back Pain (ED), Pneumonia (ED) Coding Level of Care Code ED Electrical Controls Technician for Cynthiag Fwd Exam Comprehensive
[2021-04-20 19:42] VITALS: BP 126/83; TEMP 37.2
[2021-04-20 19:43] VITALS: BP 126/83; PULSE 107; RESP 20; O2SAT 96
[2021-04-20 19:45] VITALS: RESP 18
[2021-04-20] MEDS: morphine 4 mg/mL SDV 1 mL IVP (19:45)
[2021-04-20] MEDS: ondansetron 2 mg/ML SDV 2 mL 4 MG IVP (19:46)
[2021-04-20] MEDS: sodium chloride 0.9% 1,000 ML 999 ML IV (19:46)
[2021-04-20 19:47] LABS: Basophils # 0.1 10^3/uL (0.0-0.1); Basophils % 0.7 %; Eosinophils # 0.2 10^3/uL (0.0-0.8); Eosinophils % 1.5 %; Hematocrit 42.6 % (42.0-52.0); Hemoglobin 14.6 g/dL (11.7-16.6); Lymphocytes # 2.9 10^3/uL (0.8-4.8); Lymphocytes % 19.4 %; Mean Corpuscular HGB Conc 34.3 g/dL (30.0-36.0); Mean Corpuscular Hemoglobin 31.4 pg (28.0-34.0); Mean Corpuscular Volume 91.6 fl (80-94); Mean Platelet Volume 10.5 fL (7.4-10.4); Monocytes # 1.3 10^3/uL (0.2-0.9); Monocytes % 8.3 %; Neutrophils # 10.47 10^3/uL (1.8-7.7); Neutrophils % 69.7 %; Nucleated Red Blood Cells % 0 %; Platelet Count 339 10^3/cmm (130-400); Red Blood Count 4.65 10^6/uL (4.1-5.3); Red Cell Distribution Width 12.2 % (12.1-15.1)
--- NOTE | 2021-04-20 19:48 | ECG_ITS ---
[facility] Test Date: 2021-04-20 Pat Name: Sukhwinder Gregory Department: Room: Gender: Male Sap Portal Architect: : [id number] Requested By: Lorne Carrera Order Number: [id number] Tiffanie MD: Nayan Lewis M.D. Measurements Intervals [place] Rate: 98 P: 53 MI: 194 QRS: 32 QRSD: 100 T: 67 QT: 338 QTc: 432 Interpretive Statements SINUS RHYTHM POSSIBLE LEFT ATRIAL ENLARGEMENT [-0.1mV P-WAVE IN V1/V2] INCOMPLETE RIGHT BUNDLE BRANCH BLOCK [90+ ms QRS DURATION, TERMINAL R IN V1/V2, 40+ ms S IN I/aVL/V4/V5/V6] SEPTAL MYOCARDIAL INFARCTION , OF INDETERMINATE AGE [40+ ms Q WAVE IN V1/V2] No previous ECG available for comparison Electronically Signed On 04-21-2021 20:00:31 INSTALLATION TECHNICIAN by Nayan Lewis M.D. [id number]
--- NOTE | 2021-04-20 19:51 | CTR_ITS ---
PROCEDURE INFORMATION: Exam: CT Abdomen And Pelvis With Contrast Exam date and time: 04/20/2021 7:51 PM Age: 60 years old Clinical indication: Abdominal pain; Right; Patient HX: C/O R flank/back pain today TECHNIQUE: Imaging protocol: Computed tomography of the abdomen and pelvis with contrast. Radiation optimization: All CT scans at this facility use at least one of these dose optimization techniques: automated exposure control; mA and/or kV adjustment per patient size (includes targeted exams where dose is matched to clinical indication); or iterative reconstruction. Contrast material: OMNI 300; Contrast volume: 95 ml; Contrast route: INTRAVENOUS (IV); COMPARISON: CT kidney stone [id number] 12/24/2020 4:55 AM RADIATION DOSE METRICS: Total DLP (mGy-cm): 926.45 FINDINGS: Lungs: Left lower lobe minimal tree-in-bud type particular nodular densities, potentially reflecting atypical mycobacterial infection. Heart: Coronary artery atherosclerotic calcifications partially seen Liver: Normal. No mass. Gallbladder and bile ducts: Normal. No calcified stones. No ductal dilation. Pancreas: Normal. No ductal dilation. Spleen: Normal. No splenomegaly. Adrenal glands: Normal. No mass. Kidneys and ureters: Right kidney cyst, negative for follow up. Stomach and bowel: Constipation. Diverticulosis without diverticulitis. Appendix: No evidence of appendicitis. Intraperitoneal space: Unremarkable. No free air. No significant fluid collection. Vasculature: Unremarkable. No abdominal aortic aneurysm. Lymph nodes: Unremarkable. No enlarged lymph nodes. Urinary bladder: Unremarkable as visualized. Reproductive: Unremarkable as visualized. Bones/joints: Unremarkable. No acute fracture. Soft tissues: Unremarkable. CT/CT abdomen pelvis w con* [id number] IMPRESSION: 1. Negative for acute inflammatory process in the abdomen or pelvis. 2. Left lower lobe minimal tree-in-bud type particular nodular densities, potentially reflecting atypical mycobacterial infection. 3. Right kidney cyst, negative for follow up. 4. Constipation. 5. Diverticulosis without diverticulitis. 6. Coronary artery atherosclerotic calcifications partially seen COMMENTS: Consistent with the [employer]'s Incidental Findings Committee white paper (J Am Shannan Radiol 2018): Any incidental renal lesion less than 1 cm or classified as too small to characterize, or any incidental cystic renal lesion characterized as simple-appearing, is likely benign. No follow-up imaging is recommended for these lesions per consensus recommendations based on imaging criteria. Radiation Dose CTDIVOL = (mGy): DLP = 926.45 (mGy-cm)
--- NOTE | 2021-04-20 19:53 | XRR_ITS ---
PROCEDURE INFORMATION: Exam: XR Chest Exam date and time: 04/20/2021 7:53 PM Age: 60 years old Clinical indication: Pain; Chest pressure; Prior surgery; Surgery date: 6+ months; Surgery type: Cabg; Additional info: Cp TECHNIQUE: Imaging protocol: XR of the chest. Views: 1 view. COMPARISON: CT lung screening [id number] 10/18/2020 11:35 AM FINDINGS: Lungs: Unremarkable. No consolidation. Pleural spaces: Unremarkable. No pleural effusion. No pneumothorax. Heart/Mediastinum: Unremarkable. No cardiomegaly. Bones/joints: Unremarkable. Sternotomy wires seen. XR/XR chest 1V portable [id number] IMPRESSION: No acute findings. Radiation Dose CTDIVOL = (mGy): DLP = (mGy-cm)
[2021-04-20 20:04] LABS: Alanine Aminotransferase 15 U/L (0-41); Albumin Level 4.3 g/dL (3.5-5.2); Alkaline Phosphatase 93 IU/L (40-130); Anion Gap 16.2 (5-19); Aspartate Amino Transferase 19 U/L (0-40); Blood Urea Nitrogen 8 mg/dL (6-20); Calcium 9.5 mg/dL (8.5-10.5); Carbon Dioxide 28 mmol/L (22-29); Chloride 96 mmol/L (98-107); Glomerular Filtration Rate 115.8 mL/min (90-130); Glucose 92 mg/dL (65-115); Lipase 31 U/L (13-60); Osmolality Calculated 280 mOsm/kg (285-295); Potassium 4.2 mmol/L (3.5-5.1); Sodium 136 mmol/L (136-145); Total Bilirubin 0.3 mg/dL (0.15-1.2); Total Protein 7.3 g/dL (6.6-8.7)
[2021-04-20] MEDS: iohexol 300 mg/mL 100 mL Btl IV (20:29)
[2021-04-20 20:44] LABS: Add Urine Microscopic? YES; Bilirubin Urine 1+ (Negative); Blood Urine 2+ (Negative); Glucose Urine UA Norm (Normal); Ketones Urine Negative (Negative); Leukocyte Esterase Urine Negative (Negative); Nitrate Urine Negative (Negative); Protein Urine Neg (Negative); Specific Gravity, Urine 1.015 (1.005-1.030); Urine Appearance Clear (CLEAR); Urine Color Yellow (Yellow); Urobilinogen Urine 1 mg/dL (Negative); pH Urine 5 (5-7)
[2021-04-20 20:47] LABS: Add Urine Culture? Yes; Bacteria Urine TRACE /hpf; Mucus Urine 2+ /hpf; Squamous Epithelial Cell Urine 0-4 /hpf (0-5); WBC Urine 0-4 /hpf (0-5)
[2021-04-20] MEDS: HYDROcodone-acetaminophen 5-325 mg Tablet 1 TAB PO (21:50)
[2021-04-20 22:01] VITALS: BP 118/68; PULSE 80; RESP 18; O2SAT 98
== END 2021-04-20 22:00 | disposition home or self-care (01) ==
PROVIDERS: Emergency Provider Emergency Medicine; PCP Family Medicine
DX: J18.9 Pneumonia, unspecified organism (principal); M54.50 Low back pain, unspecified; Z79.01 Long term (current) use of anticoagulants; Z79.82 Long term (current) use of aspirin; I25.10 Atherosclerotic heart disease of native coronary artery without angina pectoris; Z95.1 Presence of aortocoronary bypass graft
CPT/HCPCS: 71045; 74177; 80053; 81001; 83690; 85025; 87086; 93005; 96361; 96374; 96375; 99284; J2270; J2405; J7030; Q9967

== ENCOUNTER 2021-05-06 18:32 | Emergency (ER) | payer MEDICAID, SELFPAY ==
[2021-05-06 19:07] VITALS: BP 115/74; PULSE 114; RESP 18; O2SAT 95; BMI 20.3
[2021-05-06 19:21] VITALS: BP 112/73; PULSE 87; RESP 18; TEMP 36.9; O2SAT 97; BMI 19.8
--- NOTE | 2021-05-06 19:40 | PC.NURSE ---
triage at 1921 done on wrong pt
--- NOTE | 2021-05-06 21:00 | W.ED.EXTPRO ---
HPI - Extremity Problem General: Chief complaint: Extremity Injury, Lower Stated complaint: LEFT LEG PAIN Time Seen by Provider: 05/06/21 20:58 History of Present Illness: HPI Narrative: 60-year-old male patient comes in with some left inguinal/hip pain for last 3 to 4 days. Patient reports no injury. Patient was worried that he may be developing a blood clot due to noticing some redness in the hip area. Patient has been using a heating pad to his anterior groin and hip area. Review of Systems General: Reports: 10 or more systems reviewed and unremarkable except in HPI and below Musc: Reports: other (Left hip pain) Skin/Breast: Reports: other (Redness to the left inguinal area) PFSH ED PFSH: Medical History Aortic stenosis Coronary artery disease Surgical History H/O aortic valvuloplasty Hx of CABG Physical Exam Const: COMMON NORMALS: no acute distress and patient oriented x3 GENERAL APPEARANCE: cooperative HENMT: COMMON NORMALS: normocephalic and Normal external nose present HEAD & SCALP: normal to inspection and normocephalic NOSE: Normal external nose present MOUTH: Normal oral and palatal mucosa present Eye: GENERAL EYE: appearance normal, both eyes and all related structures Neck/C-Spine: COMMON NORMALS: full ROM Chest: COMMONS NORMALS: normal inspection of the chest Resp: COMMON NORMALS: normal respiratory effort EFFORT & INSPECTION: Yes able to speak in complete sentences Cardio: COMMON NORMALS: regular rate and regular rhythm RATE: regular rate RHYTHM: regular rhythm GI: COMMON NORMALS: non-tender : COMMON NORMALS: Yes no CVA tenderness BLADDER/KIDNEY EXAM: Yes no CVA tenderness Back/Pelvis: COMMON NORMALS: no CVA tenderness and thoracic and lumbar spine normal to inspection Extremity: NARRATIVE EXTREMITY EXAM: Pain with palpation of left inguinal area, difficulty with movement of the left hip. Neuro: COMMON NORMALS: patient oriented x3 and moves all extremities Psych: COMMON NORMALS: mental status grossly normal and cooperative Skin: NARRATIVE SKIN EXAM: Lacy rash noted to the left inguinal area suggestive of erythema ab igne, scaling rash to the lower extremities secondary to patient's psoriasis diagnosis Course Vital Signs: Vital signs: Vital Signs Temperature 98.5 F 12/07/21 19:21 Pulse Rate 87 05/06/21 19:21 Respiratory Rate 18 05/06/21 21:18 Blood Pressure 112/73 05/06/21 19:21 Pulse Oximetry 94 05/06/21 21:18 MDM - Extremity (Nontraumatic) MDM Narrative: Medical decision making narrative: 60-year-old male patient comes in today with complaints of left anterior hip pain. Patient was concerned of some redness to the anterior part of his hip where he has been using a heating pad. On exam we note a pattern area of redness to the left anterior hip. Distal pulses and sensation are intact patient does have some scaling dermatitis due to his psoriasis to bilateral lower extremities. No significant redness or swelling is noted distally. Vital signs are normal. Differential diagnosis includes but not limited to avascular necrosis, cellulitis, tendinitis, osteoarthritis. X-ray was unremarkable. Patient was given a dose of ketorolac and morphine IV with good results for pain. I suspect patient help he has more of a musculoskeletal pain issue versus infectious. We will treat for tendinitis with steroid prednisone 20 mg twice a day for 5 days. And hydrocodone for control of pain. Patient should continue with other routine care follow-up with primary care or return to the ER for worsening symptoms. Discharge Plan Discharge Patient Disposition: Home Clinical Impression: Hip flexor tendinitis Qualifiers: Laterality: left Qualified Code(s): M76.892 - Other specified enthesopathies of left lower limb, excluding foot Condition: Stable Prescriptions: New prednisone 20 mg tablet 20 mg PO BID 5 Days Qty: 10 RF: 0 Continued hydrocodone-acetaminophen 5-325 mg tablet 1 tab PO Q6H PRN (Reason: pain) Qty: 14 RF: 0 No Action warfarin 7.5 mg Tablet 7.5 mg PO MoFr@2100 30 Days Qty: 9 RF: 1 atorvastatin 40 mg tablet 40 mg PO DAILY 30 Days Qty: 30 RF: 1 metoprolol succinate 50 mg tablet extended release 24 hr 50 mg PO DAILY 30 Days Qty: 30 RF: 1 warfarin 5 mg tablet See Rx Instructions .ROUTE .COMPLEX 30 Days Qty: 22 RF: 1 aspirin 81 mg Tablet,Chewable 81 mg PO DAILY 30 Days Qty: 30 RF: 1 Discharge Orders: Discharge ED (Routine); Ordered 12/07/21 Ordered By: León Coppola Referrals: Ulises Gonzalez MD [Primary Care Provider] - Discharge Diet: Usual diet Discharge Activity: Increase activity as tolerated Patient Instructions: Tendinitis (ED), Opioid Safety Activity Restrictions/Additional Instructions: Home and rest. Activity as tolerated. Gentle stretching and range of motion exercises. Follow-up with primary care as needed. Coding Level of Care Code ED Insurance Sales Supervisor for Chg Fwd Exam Comprehensive
--- NOTE | 2021-05-06 21:04 | XRR_ITS ---
PROCEDURE INFORMATION: Exam: XR Left Hip Exam date and time: 05/06/2021 9:04 PM Age: 60 years old Clinical indication: Patient HX: Left hip pain; Additional info: Pain, no known injury TECHNIQUE: Imaging protocol: XR Left hip. Views: 2 or 3 views hip with pelvis when performed. COMPARISON: CT abdomen pelvis w con* [id number] 04/20/2021 8:27 PM FINDINGS: Bones/joints: Alignment is normal. The visible portion of the pelvis and sacrum is intact. Joint spaces are preserved. No acute fracture. There is subtle chondrocalcinosis at the left hip. Soft tissues: Visible soft tissues are unremarkable. XR/XR hip LT 2-3V wo/w pel* [id number] IMPRESSION: 1. No acute findings. 2. Chondrocalcinosis the left hip with preserved joint space and no osteophytes.
[2021-05-06] MEDS: ketorolac 30 mg/mL INJ 15 MG IVP (21:17)
[2021-05-06 21:18] VITALS: RESP 18; O2SAT 94
[2021-05-06] MEDS: morphine 4 mg/mL SDV 1 mL 2 MG IVP (21:18)
[2021-05-06] MEDS: dexamethasone 10 mg/mL INJ IVP (21:52)
[2021-05-06 21:59] VITALS: BP 130/79; PULSE 96; RESP 18; O2SAT 96
== END 2021-05-06 22:02 | disposition home or self-care (01) ==
PROVIDERS: Emergency Provider Nurse Practitioner Family; PCP Family Medicine
DX: M76.892 Other specified enthesopathies of left lower limb, excluding foot (principal); Z79.01 Long term (current) use of anticoagulants; Z79.82 Long term (current) use of aspirin; I25.10 Atherosclerotic heart disease of native coronary artery without angina pectoris; Z95.1 Presence of aortocoronary bypass graft
CPT/HCPCS: 73502; 96374; 96375; 99283; J1100; J1885; J2270

== ENCOUNTER 2021-06-09 16:10 | Emergency (ER) | payer MEDICAID, SELFPAY ==
[2021-06-09 16:17] VITALS: BP 140/94; PULSE 96; RESP 18; TEMP 36.4; O2SAT 99; BMI 21.7
--- NOTE | 2021-06-09 16:38 | W.ED.GENADLT ---
HPI - General Adult General: Chief complaint: General Medical Stated complaint: Pain in R upper side of chest Time Seen by Provider: 06/09/21 16:32 Source: patient Mode of arrival: ambulatory Limitations: no limitations History of Present Illness: HPI narrative: This is a 60-year-old male presents emergency department chief complaint of pleuritic and reproducible right-sided chest pain has been intermittent ongoing for about 2 to 3 weeks the patient does report he ate he is probably pneumonia which she had pneumonia recently about a month ago which she was on antibiotics for he also recalls having a known history of pleurisy reports no history of blood clots he does report that his pain was notable arrival right side of the chest wall he does not recall having any previous trauma or rib fractures to that location he does not recall having abdominal pain he does report some mild back pain with it. He does not recall having actual anterior chest pain with it which she reports no palpitations. Patient reports for last 2 to 3 days it has been progressively getting worse. Onset (ago): day(s) (3) Location: chest Associated symptoms: Reports chest pain; Deny dyspnea, headache(s), malaise, nausea, rash, palpitations or vomiting Review of Systems General: Reports: 10 or more systems reviewed and unremarkable except in HPI and below Const: Denies: fever(s), chills, fatigue or malaise Eyes: Denies: change in vision or blurry vision Card: Reports: chest pain; Denies: palpitations Resp: Denies: dyspnea or productive cough GI: Denies: abdominal pain, nausea or vomiting : Denies: flank pain Musc: Denies: extremity pain or extremity swelling Skin/Breast: Denies: rash or pruritus Neuro: Denies: headache(s) Psych: Denies: anxiety or depression Mark/Lymph: Denies: easy bleeding All/Imm: Denies: urticaria, throat swelling or facial swelling PFS ED PFSH: Medical History Aortic stenosis Coronary artery disease Surgical History H/O aortic valvuloplasty Hx of CABG Physical Exam Narrative: EXAM NARRATIVE: Patient appears to be in mild distress due to pain on exam otherwise appears nontoxic appearing Const: COMMON NORMALS: no acute distress, patient oriented x3 and healthy appearing HENMT: COMMON NORMALS: normocephalic and atraumatic HEAD & SCALP: normocephalic and atraumatic Eye: COMMON NORMALS: Equal, round and reactive pupils present and EOMs intact bilaterally PUPIL: Yes Equal, round and reactive pupils present Neck/C-Spine: COMMON NORMALS: full ROM, supple and no JVD Lymph: LYMPHATIC: no lymphadenopathy noted Chest: COMMONS NORMALS: normal inspection of the chest and normal palpation of entire chest wall CHEST: Yes localized rib tenderness with anteroposterior compression (Pain noted about T8-T9 region with no obvious trauma) Resp: COMMON NORMALS: normal respiratory effort (Mild respiratory splinting noted to the right side) and clear to auscultation bilaterally EFFORT & INSPECTION: Yes able to speak in complete sentences and Yes symmetric chest movement AUSCULTATION: clear to auscultation bilaterally Cardio: COMMON NORMALS: no JVD, regular rate and regular rhythm RATE: regular rate RHYTHM: regular rhythm GI: COMMON NORMALS: Normal to inspection, nondistended, normoactive bowel sounds present, Soft to palpation and non-tender INSPECTION: Yes normal to inspection PALPATION: Yes Soft to palpation : COMMON NORMALS: Yes no CVA tenderness BLADDER/KIDNEY EXAM: Yes no CVA tenderness Back/Pelvis: COMMON NORMALS: no CVA tenderness Extremity: COMMON NORMALS: normal to inspection and full ROM Neuro: COMMON NORMALS: patient oriented x3, CN's II-XII intact bilaterally, moves all extremities and no focal motor deficits Psych: COMMON NORMALS: mental status grossly normal, Normal thought process present, cooperative and normal affect THOUGHT PROCESS: Normal thought process present Skin: COMMON NORMALS: no rashes or lesions noted GENERAL SKIN EXAM: no rashes or lesions noted Course ED course: Due to the patient's symptoms and condition lab work and imaging was obtained repeat troponin was obtained due to beeping pleuritic chest pain the patient underwent a PE protocol CT angiogram. This revealed no obvious acute underlying process patient appears to have some pus possibly residual pleurisy from his previous pneumonia EKG was in normal sinus rhythm rate of [address] segment elevation or depressions appreciated. Troponins were also negative x2. Patient be subsequent discharged home on some Ultram for pain control advised further follow-up primary care in 2 to 3 days which was advised to return the interim if any of the symptoms persist or worse. Vital Signs: Vital signs: Vital Signs Temperature 97.6 F 06/09/21 16:17 Pulse Rate 79 06/09/21 17:49 Respiratory Rate 18 06/09/21 21:39 Blood Pressure 122/79 06/09/21 21:39 Pulse Oximetry 97 06/09/21 21:39 [facility] - General Adult Lab Data: Labs: Lab Results 06/09/21 06/09/21 06/09/21 18:02 18:02 18:02 WBC 10.3 10^3/uL H 10 ^3/uL (4.0-10.0) RBC 4.53 10^6/uL 10^6 /uL (4.1-5.3) Hgb 13.9 g/dL g/dL (11.7-16.6) Hct 42.5 % % (42.0-52.0) MCV 93.8 fl fl (80-94) MCH 30.7 pg pg (28.0-34.0) MCHC 32.7 g/dL g/dL (30.0-36.0) RDW 13.0 % % (12.1-15.1) Plt Count 326 10^3/cmm 10^3 /cmm (130-400) MPV 11.0 fL H fL (7.4-10.4) Neut % (Auto) 54.5 % % Lymph % (Auto) 33.5 % % [place] % (Auto) 8.1 % % Eos % (Auto) 2.6 % % Baso % (Auto) 1.1 % % Neut # (Auto) 5.61 10^3/uL 10^3 /uL (1.8-7.7) Lymph # (Auto) 3.5 10^3/uL 10^3/ uL (0.8-4.8) [place] # (Auto) 0.8 10^3/uL 10^3/ uL (0.2-0.9) Eos # (Auto) 0.3 10^3/uL 10^3/ uL (0.0-0.8) Baso # (Auto) 0.1 10^3/uL 10^3/ uL (0.0-0.1) Nucleated RBC % (a uto) 0 % % Nucleated RBCs # 0.0 /100WBC /100W BC Sodium 140 mmol/L mmol/L (136-145) Potassium 4.4 mmol/L mmol/L (3.5-5.1) Chloride 105 mmol/L mmol/L (98-107) Carbon Dioxide 22 mmol/L mmol/L (22-29) Anion Gap 17.4 (5-19) BUN 8 mg/dL mg/dL (6-20) Creatinine 0.6 mg/dL L mg/dL (0.7-1.2) GFR Calculation 138.4 mL/min H mL /min (90-130) Glucose 77 mg/dL mg/dL (65-115) Calculated Osmolal ity 287 mOsm/kg mOsm/ kg (285-295) Calcium 9.4 mg/dL mg/dL (8.5-10.5) Total Bilirubin 0.3 mg/dL mg/dL (0.15-1.2) AST 24 U/L U/L (0-40) ALT 18 U/L U/L (0-41) Alkaline Phosphata se 85 IU/L IU/L (40-130) Troponin T Baselin e 10 ng/L ng/L (0-15) Troponin T 120 [address] [place] Delta Troponin T NT-Pro-B Natriuret Pep 160 pg/mL H pg/mL (0-125) Total Protein 6.5 g/dL L g/dL (6.6-8.7) Albumin 4.1 g/dL g/dL (3.5-5.2) Globulin 2.4 g/dL g/dL (1.3-4.6) Lipase 83 U/L H U/L (13-60) Urine Opiates Scre en Ur Barbiturates Sc reen Ur Phencyclidine S crn Ur Amphetamines Sc reen U Benzodiazepines Scrn Urine Cocaine Scre en U Marijuana (THC) Screen 06/09/21 06/09/21 19:40 19:53 WBC RBC Hgb Hct MCV MCH MCHC RDW Plt Count MPV Neut % (Auto) Lymph % (Auto) [place] % (Auto) Eos % (Auto) Baso % (Auto) Neut # (Auto) Lymph # (Auto) [place] # (Auto) Eos # (Auto) Baso # (Auto) Nucleated RBC % (a uto) Nucleated RBCs # Sodium Potassium Chloride Carbon Dioxide Anion Gap BUN Creatinine GFR Calculation Glucose Calculated Osmolal ity Calcium Total Bilirubin AST ALT Alkaline Phosphata se Troponin T Baselin e Troponin T [address] [place] 10.26 ng/L ng/L (0-15) Delta Troponin T 0.26 ABS# ABS# (0-10) NT-Pro-B Natriuret Pep Total Protein Albumin Globulin Lipase Urine Opiates Scre en Negative ng/mL ng /mL (Negative) Ur Barbiturates Sc reen Negative ng/mL ng /mL (Negative) Ur Phencyclidine S crn Negative ng/mL ng /mL (Negative) Ur Amphetamines Sc reen Negative ng/mL ng /mL (Negative) U Benzodiazepines Scrn Negative ng/mL ng /mL (Negative) Urine Cocaine Scre en Negative ng/mL ng /mL (Negative) U Marijuana (THC) Screen Positive ng/mL H ng/mL (Negative) Discharge Plan Discharge Patient Disposition: Home Clinical Impression: Chest pain, pleuritic, Acute chest wall pain Condition: Stable Prescriptions: New Ultram 50 mg tablet 50 mg PO Q12H PRN (Reason: pain) Qty: 15 RF: 0 No Action warfarin 7.5 mg Tablet 7.5 mg PO MoFr@2100 30 Days Qty: 9 RF: 1 atorvastatin 40 mg tablet 40 mg PO DAILY 30 Days Qty: 30 RF: 1 metoprolol succinate 50 mg tablet extended release 24 hr 50 mg PO DAILY 30 Days Qty: 30 RF: 1 warfarin 5 mg tablet See Rx Instructions .ROUTE .COMPLEX 30 Days Qty: 22 RF: 1 aspirin 81 mg Tablet,Chewable 81 mg PO DAILY 30 Days Qty: 30 RF: 1 hydrocodone-acetaminophen 5-325 mg tablet 1 tab PO Q6H PRN (Reason: pain) Qty: 14 RF: 0 Discharge Orders: Discharge ED (Routine); Ordered 06/09/21 Ordered By: Nando Jones Referrals: Ulises Gonzalez MD [Primary Care Provider] - 1-3 days Discharge Diet: Advance as tolerated Discharge Activity: Increase activity as tolerated Patient Instructions: Chest Pain - Chest Wall, Chest Pain (ED), Pleurisy (ED), Opioid Safety Activity Restrictions/Additional Instructions: Follow-up with your primary care doctor in 2 to 3 days, take medication as prescribed and return the interim if any of your symptoms persist or worse. Coding Level of Care Code ED Craft Coordinator for Christel Fabian
--- NOTE | 2021-06-09 16:59 | ECG_ITS ---
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 Measurements Intervals [place] Rate: 94 P: 63 IN: 184 QRS: 74 QRSD: 101 T: 50 QT: 336 QTc: 422 Interpretive Statements SINUS RHYTHM POSSIBLE RIGHT VENTRICULAR CONDUCTION DELAY [RSR (QR) IN V1/V2] ST ELEVATION, PROBABLY EARLY REPOLARIZATION [ST ELEVATION WITH NORMALLY INFLECTED T-WAVE] Compared to ECG 04/20/2021 19:59:47 ST (T wave) deviation now present Early repolarization now present Incomplete right bundle-branch block no longer present Myocardial infarct finding no longer present Electronically Signed On 06-10-2021 5:00:46 MOTOR ROUTE CARRIER by Penelope Werner M.D. [id number]
--- NOTE | 2021-06-09 17:39 | XRR_ITS ---
PROCEDURE INFORMATION: Exam: XR Right Ribs with PA Chest Exam date and time: 06/09/2021 5:39 PM Age: 60 years old Clinical indication: Chest wall pain; Right; Prior surgery; Surgery date: 6+ months; Surgery type: Double bypass; Additional info: Pain in right side of ribs TECHNIQUE: Imaging protocol: XR Right ribs with PA chest. Views: 3 views COMPARISON: CR XR chest 1V portable [id number] 04/20/2021 9:12 PM FINDINGS: Lungs: Unremarkable. No consolidation. Pleural spaces: Unremarkable. No pleural effusion. No pneumothorax. Heart/Mediastinum: Unremarkable. No cardiomegaly. Bones/joints: Sternotomy wires. XR/XR ribs RT mn 3V w CXR1V [id number] IMPRESSION: Negative for fracture or dislocation
[2021-06-09 17:49] VITALS: BP 124/81; PULSE 79; RESP 15; O2SAT 96
[2021-06-09] MEDS: ketorolac 30 mg/mL INJ 15 MG IVP (17:59)
[2021-06-09] MEDS: aspirin 81 mg Chew Tablet 324 MG PO (17:59)
[2021-06-09] MEDS: sodium chloride 0.9% 500 ML 999 ML IV (17:59)
[2021-06-09 18:18] LABS: Basophils # 0.1 10^3/uL (0.0-0.1); Basophils % 1.1 %; Eosinophils # 0.3 10^3/uL (0.0-0.8); Eosinophils % 2.6 %; Hematocrit 42.5 % (42.0-52.0); Hemoglobin 13.9 g/dL (11.7-16.6); Lymphocytes # 3.5 10^3/uL (0.8-4.8); Lymphocytes % 33.5 %; Mean Corpuscular HGB Conc 32.7 g/dL (30.0-36.0); Mean Corpuscular Hemoglobin 30.7 pg (28.0-34.0); Mean Corpuscular Volume 93.8 fl (80-94); Monocytes # 0.8 10^3/uL (0.2-0.9); Monocytes % 8.1 %; Neutrophils # 5.61 10^3/uL (1.8-7.7); Neutrophils % 54.5 %; Nucleated Red Blood Cells % 0 %; Platelet Count 326 10^3/cmm (130-400); Red Blood Count 4.53 10^6/uL (4.1-5.3); White Blood Count 10.3 10^3/uL (4.0-10.0)
[2021-06-09 18:46] LABS: Troponin(5th) Baseline 10 ng/L (0-15)
[2021-06-09 18:53] LABS: Alanine Aminotransferase 18 U/L (0-41); Albumin Level 4.1 g/dL (3.5-5.2); Alkaline Phosphatase 85 IU/L (40-130); Blood Urea Nitrogen 8 mg/dL (6-20); Calcium 9.4 mg/dL (8.5-10.5); Carbon Dioxide 22 mmol/L (22-29); Chloride 105 mmol/L (98-107); Globulin 2.4 g/dL (1.3-4.6); Glomerular Filtration Rate 138.4 mL/min (90-130); Glucose 77 mg/dL (65-115); Lipase 83 U/L (13-60); NT Pro B Type Natriuretic Pept 160 pg/mL (0-125); Osmolality Calculated 287 mOsm/kg (285-295); Sodium 140 mmol/L (136-145); Total Bilirubin 0.3 mg/dL (0.15-1.2); Total Protein 6.5 g/dL (6.6-8.7)
[2021-06-09 18:55] LABS: Anion Gap 17.4 (5-19); Aspartate Amino Transferase 24 U/L (0-40); Potassium 4.4 mmol/L (3.5-5.1)
--- NOTE | 2021-06-09 18:59 | ECG_ITS ---
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 Measurements Intervals [place] Rate: 76 P: 70 ND: 205 QRS: 52 QRSD: 113 T: 73 QT: 377 QTc: 424 Interpretive Statements SINUS RHYTHM POSSIBLE LEFT ATRIAL ENLARGEMENT [-0.1mV P-WAVE IN V1/V2] POSSIBLE RIGHT VENTRICULAR CONDUCTION DELAY [RSR (QR) IN V1/V2] Compared to ECG 06/09/2021 16:27:55 ST (T wave) deviation no longer present Early repolarization no longer present Electronically Signed On 06-10-2021 5:12:09 AUTOMATION ENGINEER by Penelope Werner M.D. [id number]
[2021-06-09 20:15] LABS: Troponin 5 2HR 10.26 ng/L (0-15); Troponin 5 2HR Delta 0.26 ABS# (0-10)
--- NOTE | 2021-06-09 20:32 | CTR_ITS ---
PROCEDURE INFORMATION: Exam: CTA Chest With Contrast Exam date and time: 06/09/2021 8:32 PM Age: 60 years old Clinical indication: Angina and shortness of breath; Prior surgery; Additional info: Right sided pleuritic chest pain TECHNIQUE: Imaging protocol: Computed tomographic angiography of the chest with contrast. 3D rendering (Not supervised by radiologist): MIP and/or 3D reconstructed images were created by the technologist. Radiation optimization: All CT scans at this facility use at least one of these dose optimization techniques: automated exposure control; mA and/or kV adjustment per patient size (includes targeted exams where dose is matched to clinical indication); or iterative reconstruction. Contrast material: OMNI 350; Contrast volume: 67 ml; Contrast route: INTRAVENOUS (IV); COMPARISON: CR (CHEST, ) 06/09/2021 6:14 PM RADIATION DOSE METRICS: Total DLP (mGy-cm): 588.21 FINDINGS: Pulmonary arteries: No filling defects in the pulmonary arteries to suggest pulmonary embolism. Aorta: Mild atherosclerotic changes in the visualized arteries. No evidence for aortic aneurysm or aortic dissection. Trachea: Tracheobronchial structures are patent. Lungs: Moderate paraseptal emphysematous changes in the upper lobes. Lungs are clear bilaterally. No pulmonary parenchymal nodules or masses. Pleural spaces: No pneumothorax. No pleural effusion. Heart: The patient has a prosthetic aortic valve. The heart is normal in size. Esophagus: The esophagus is unremarkable. Mediastinal space: No mediastinal hematoma. No pneumomediastinum. Lymph nodes: No lymphadenopathy. Liver: The visualized liver is unremarkable. Gallbladder and bile ducts: The gallbladder is unremarkable. No dilatation of the visualized bile ducts. Pancreas: The visualized pancreas is unremarkable. No pancreatic ductal dilatation. Spleen: The spleen is unremarkable. Adrenal glands: The right and left adrenal glands are unremarkable. Kidneys and ureters: Simple cyst in the visualized right kidney measuring 4.0 cm. The visualized left kidney is unremarkable. Bones/joints: Poststernotomy changes in the chest. Degenerative changes in the spine and shoulders. Soft tissues: No acute abnormality in the extrathoracic soft tissues. CT/CT angio chest PE protcl [id number] IMPRESSION: 1. No evidence for pulmonary embolism. 2. No acute cardiopulmonary process. 3. Incidental/nonacute findings are listed in the report. COMMENTS: Consistent with the [employer]'s Incidental Findings Committee white paper (J Am Shannan Radiol 2018): Any incidental renal lesion less than 1 cm or classified as too small to characterize, or any incidental cystic renal lesion characterized as simple-appearing, is likely benign. No follow-up imaging is recommended for these lesions per consensus recommendations based on imaging criteria.
[2021-06-09] MEDS: iohexol 350 mg/mL 100 mL Btl IV (20:41)
[2021-06-09 20:49] LABS: Amphetamines Screen Urine Negative (Negative); Barbiturates Screen Urine Negative (Negative); Benzodiazepines Screen Urine Negative (Negative); Cocaine Screen Urine Negative (Negative); Opiate Screen Urine Negative (Negative); PCP Screen Urine Negative (Negative); THC Screen Urine Positive (Negative)
[2021-06-09 21:39] VITALS: BP 122/79; RESP 18; O2SAT 97
--- NOTE | 2021-06-09 22:59 | ECG_ITS ---
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 Measurements Intervals [place] Rate: 88 P: 72 ND: 193 QRS: 58 QRSD: 113 T: 79 QT: 361 QTc: 438 Interpretive Statements SINUS RHYTHM POSSIBLE LEFT ATRIAL ENLARGEMENT [-0.1mV P-WAVE IN V1/V2] INCOMPLETE RIGHT BUNDLE BRANCH BLOCK [90+ ms QRS DURATION, TERMINAL R IN V1/V2, 40+ ms S IN I/aVL/V4/V5/V6] Compared to ECG 06/09/2021 18:52:35 Incomplete right bundle-branch block now present Electronically Signed On 06-11-2021 19:59:15 FOOD COUNSELOR by Nayan Lewis M.D. [id number]
[2021-06-09 23:00] VITALS: BP 122/77; PULSE 84; RESP 16; O2SAT 95
[2021-06-09 23:23] VITALS: BP 122/77; PULSE 84; RESP 16; O2SAT 95
== END 2021-06-09 23:15 | disposition home or self-care (01) ==
PROVIDERS: Emergency Provider Emergency Medicine; PCP Family Medicine
DX: R07.81 Pleurodynia (principal); R07.89 Other chest pain; Z79.01 Long term (current) use of anticoagulants; Z79.82 Long term (current) use of aspirin; I25.10 Atherosclerotic heart disease of native coronary artery without angina pectoris; Z95.1 Presence of aortocoronary bypass graft
CPT/HCPCS: 71101; 71275; 80053; 80306; 83690; 83880; 84484; 85025; 93005; 96374; 99283; J1885; J7040; Q9967

== ENCOUNTER 2021-06-19 20:30 | Emergency (ER) | payer MEDICAID, SELFPAY ==
[2021-06-19 20:36] VITALS: BP 187/132; PULSE 83; RESP 22; TEMP 36.6; O2SAT 97; BMI 21.7
--- NOTE | 2021-06-19 20:41 | XRR_ITS ---
PROCEDURE INFORMATION: Exam: XR Chest Exam date and time: 06/19/2021 8:41 PM Age: 60 years old Clinical indication: Pain; Right-sided; Prior surgery; Surgery type: Cabg; Additional info: Cp TECHNIQUE: Imaging protocol: XR of the chest. Views: 1 view. Total images: 1 COMPARISON: 1. CR (CHEST, ) 06/09/2021 6:[address] angio chest PE protcl [id number] 06/09/2021 8:41 PM FINDINGS: Lungs: No visible active interstitial or alveolar airspace disease. COPD/chronic bronchitis. Pleural spaces: No pleural effusion. No pneumothorax. Heart/Mediastinum: Cardiac structures and configuration with status post sternotomy chest and CABG with aortic valve prosthesis. Bones/joints: Unremarkable. XR/XR chest 1V portable [id number] IMPRESSION: Nonacute.
[2021-06-19 21:46] LABS: Basophils # 0.2 10^3/uL (0.0-0.1); Basophils % 1.1 %; Eosinophils # 0.3 10^3/uL (0.0-0.8); Eosinophils % 2.5 %; Hematocrit 43.9 % (42.0-52.0); Hemoglobin 14.5 g/dL (11.7-16.6); Lymphocytes # 3.5 10^3/uL (0.8-4.8); Lymphocytes % 25.3 %; Mean Corpuscular Hemoglobin 31.3 pg (28.0-34.0); Mean Corpuscular Volume 94.8 fl (80-94); Mean Platelet Volume 10.6 fL (7.4-10.4); Monocytes % 7.4 %; Neutrophils # 8.78 10^3/uL (1.8-7.7); Neutrophils % 63.3 %; Nucleated Red Blood Cells % 0 %; Platelet Count 285 10^3/cmm (130-400); Red Blood Count 4.63 10^6/uL (4.1-5.3); Red Cell Distribution Width 13.4 % (12.1-15.1); White Blood Count 13.9 10^3/uL (4.0-10.0)
[2021-06-19 22:09] LABS: Troponin(5th) Baseline 10 ng/L (0-15)
[2021-06-19 22:13] LABS: Alanine Aminotransferase 26 U/L (0-41); Alkaline Phosphatase 82 IU/L (40-130); Anion Gap 13.2 (5-19); Aspartate Amino Transferase 25 U/L (0-40); Blood Urea Nitrogen 12 mg/dL (6-20); Calcium 8.4 mg/dL (8.5-10.5); Carbon Dioxide 25 mmol/L (22-29); Chloride 104 mmol/L (98-107); Globulin 1.8 g/dL (1.3-4.6); Glomerular Filtration Rate 86.7 mL/min (90-130); Glucose 86 mg/dL (65-115); Osmolality Calculated 285 mOsm/kg (285-295); Potassium 4.2 mmol/L (3.5-5.1); Sodium 138 mmol/L (136-145); Total Bilirubin 0.2 mg/dL (0.15-1.2); Total Protein 5.8 g/dL (6.6-8.7)
--- NOTE | 2021-06-19 22:21 | W.ED.CHESTPA ---
HPI - Chest Pain General: Chief Complaint: Chest Pain Stated Complaint: cp,sob Time Seen by Provider: 06/19/21 22:07 Source: patient Mode of arrival: ambulatory Limitations: no limitations History of Present Illness: HPI narrative: 60-year-old male states been having right-sided chest pain for the last 8 weeks. He states been a sharp pain he states been seen by ER and his primary care doctor and they have not been able to figure out the cause of the pain. He states that sharp on the right side radiates to his back. He denies any worsening improving factors. Denies any nausea vomiting states pain is currently a 6 out of 10. Has a history of coronary artery bypass. Associated symptoms: Deny abdominal pain, dyspnea, fever(s), nausea or vomiting Review of Systems Const: Denies: fever(s), chills, body aches or change in appetite Eyes: Denies: blurry vision or eye discomfort ENMT: Denies: throat pain or dental pain Card: Reports: chest pain Resp: Denies: dyspnea GI: Denies: abdominal pain, nausea, vomiting or diarrhea : Denies: dysuria Musc: Denies: neck pain or back pain Skin/Breast: Denies: rash Neuro: Denies: headache(s) Psych: Denies: depression Mark/Lymph: Denies: easy bruising All/Imm: Denies: urticaria PFSH ED PFSH: Medical History Aortic stenosis Coronary artery disease Surgical History H/O aortic valvuloplasty Hx of CABG Physical Exam Const: COMMON NORMALS: no acute distress, patient oriented x3 and healthy appearing HENMT: COMMON NORMALS: normocephalic and atraumatic HEAD & SCALP: normocephalic and atraumatic Eye: COMMON NORMALS: Equal, round and reactive pupils present and EOMs intact bilaterally PUPIL: Yes Equal, round and reactive pupils present Neck/C-Spine: COMMON NORMALS: full ROM and supple Chest: COMMONS NORMALS: normal inspection of the chest and normal palpation of entire chest wall Resp: COMMON NORMALS: normal respiratory effort, No retractions, No use of accessory muscles and clear to auscultation bilaterally AUSCULTATION: clear to auscultation bilaterally Cardio: COMMON NORMALS: regular rate, regular rhythm and No murmurs present (Cardio) RATE: regular rate RHYTHM: regular rhythm GI: COMMON NORMALS: Normal to inspection, nondistended, normoactive bowel sounds present, Soft to palpation, non-tender and no masses PALPATION: Yes Soft to palpation Extremity: COMMON NORMALS: normal to inspection and full ROM Neuro: COMMON NORMALS: patient oriented x3, moves all extremities and no focal motor deficits Psych: COMMON NORMALS: mental status grossly normal, Normal thought process present and cooperative THOUGHT PROCESS: Normal thought process present Skin: COMMON NORMALS: no rashes or lesions noted and no wounds GENERAL SKIN EXAM: no rashes or lesions noted Course Vital Signs: Vital signs: Vital Signs Temperature 97.8 F 06/19/21 20:36 Pulse Rate 70 06/19/21 23:19 Respiratory Rate 16 06/19/21 23:19 Blood Pressure 136/88 06/19/21 23:19 Pulse Oximetry 96 06/19/21 23:19 MDM - Chest Pain MDM Narrative: Medical decision making narrative: Patient presents here with chest pains atypical in nature is right-sided she is well-appearing here in troponins here are normal. Patient is stable for discharge is to follow-up with PCP and return if worsening he understands agrees to plan. Lab Data: Labs: Lab Results 06/19/21 06/19/21 06/19/21 21:35 21:35 21:35 WBC 13.9 10^3/uL H 10 ^3/uL (4.0-10.0) RBC 4.63 10^6/uL 10^6 /uL (4.1-5.3) Hgb 14.5 g/dL g/dL (11.7-16.6) Hct 43.9 % % (42.0-52.0) MCV 94.8 fl H fl (80-94) MCH 31.3 pg pg (28.0-34.0) MCHC 33.0 g/dL g/dL (30.0-36.0) RDW 13.4 % % (12.1-15.1) Plt Count 285 10^3/cmm 10^3 /cmm (130-400) MPV 10.6 fL H fL (7.4-10.4) Neut % (Auto) 63.3 % % Lymph % (Auto) 25.3 % % [place] % (Auto) 7.4 % % Eos % (Auto) 2.5 % % Baso % (Auto) 1.1 % % Neut # (Auto) 8.78 10^3/uL H 10 ^3/uL (1.8-7.7) Lymph # (Auto) 3.5 10^3/uL 10^3/ uL (0.8-4.8) [place] # (Auto) 1.0 10^3/uL H 10^ 3/uL (0.2-0.9) Eos # (Auto) 0.3 10^3/uL 10^3/ uL (0.0-0.8) Baso # (Auto) 0.2 10^3/uL H 10^ 3/uL (0.0-0.1) Nucleated RBC % (a uto) 0 % % Nucleated RBCs # 0.0 /100WBC /100W BC Sodium 138 mmol/L mmol/L (136-145) Potassium 4.2 mmol/L mmol/L (3.5-5.1) Chloride 104 mmol/L mmol/L (98-107) Carbon Dioxide 25 mmol/L mmol/L (22-29) Anion Gap 13.2 (5-19) BUN 12 mg/dL mg/dL (6-20) Creatinine 0.9 mg/dL mg/dL (0.7-1.2) GFR Calculation 86.7 mL/min L mL/ min (90-130) Glucose 86 mg/dL mg/dL (65-115) Calculated Osmolal ity 285 mOsm/kg mOsm/ kg (285-295) Calcium 8.4 mg/dL L mg/dL (8.5-10.5) Total Bilirubin 0.2 mg/dL mg/dL (0.15-1.2) AST 25 U/L U/L (0-40) ALT 26 U/L U/L (0-41) Alkaline Phosphata se 82 IU/L IU/L (40-130) Troponin T Baselin e 10 ng/L ng/L (0-15) Troponin T 120 Min [place] Troponin T Total Protein 5.8 g/dL L g/dL (6.6-8.7) Albumin 4.0 g/dL g/dL (3.5-5.2) Globulin 1.8 g/dL g/dL (1.3-4.6) 06/19/21 23:27 WBC RBC Hgb Hct MCV MCH MCHC RDW Plt Count MPV Neut % (Auto) Lymph % (Auto) [place] % (Auto) Eos % (Auto) Baso % (Auto) Neut # (Auto) Lymph # (Auto) [place] # (Auto) Eos # (Auto) Baso # (Auto) Nucleated RBC % (a uto) Nucleated RBCs # Sodium Potassium Chloride Carbon Dioxide Anion Gap BUN Creatinine GFR Calculation Glucose Calculated Osmolal ity Calcium Total Bilirubin AST ALT Alkaline Phosphata se Troponin T Baselin e Troponin T 120 Min [place] 11.22 ng/L ng/L (0-15) Delta Troponin T 1.22 ABS# ABS# (0-10) Total Protein Albumin Globulin Imaging Data^: CXR: Attestation: I personally reviewed and interpreted this imaging study as follows: Radiologist's impression: No acute abnormality EKG Data^: EKG 1: Attestation: I personally reviewed and interpreted this EKG as follows: EKG interpretation date: 06/19/21 EKG interpretation time: 20:42 Interpretation: nsr hr [address] or t wave abnormalities qrs 92 qtc 392 Discharge Plan Discharge Patient Disposition: Home Clinical Impression: Chest pain Qualifiers: Chest pain type: unspecified Qualified Code(s): R07.9 - Chest pain, unspecified Condition: Stable Prescriptions: No Action Ultram 50 mg tablet 50 mg PO Q12H PRN (Reason: pain) Qty: 15 RF: 0 warfarin 7.5 mg Tablet 7.5 mg PO MoFr@2100 30 Days Qty: 9 RF: 1 atorvastatin 40 mg tablet 40 mg PO DAILY 30 Days Qty: 30 RF: 1 metoprolol succinate 50 mg tablet extended release 24 hr 50 mg PO DAILY 30 Days Qty: 30 RF: 1 warfarin 5 mg tablet See Rx Instructions .ROUTE .COMPLEX 30 Days Qty: 22 RF: 1 aspirin 81 mg Tablet,Chewable 81 mg PO DAILY 30 Days Qty: 30 RF: 1 hydrocodone-acetaminophen 5-325 mg tablet 1 tab PO Q6H PRN (Reason: pain) Qty: 14 RF: 0 Discharge Orders: Discharge ED (Routine); Ordered 06/20/21 Ordered By: Korby Debi Referrals: Ulises Gonzalez MD [Primary Care Provider] - 1-3 days Discharge Diet: Advance as tolerated Discharge Activity: Resume usual activity Patient Instructions: Chest Pain (ED) Coding Level of Care Code ED Vending Machine Refiller for Chg Fwd Exam Comprehensive
[2021-06-19 22:50] VITALS: RESP 18
[2021-06-19] MEDS: morphine 4 mg/mL SDV 1 mL IVP (22:50)
[2021-06-19 22:51] VITALS: BP 137/91; PULSE 68; RESP 18; O2SAT 96
[2021-06-19] MEDS: ondansetron 2 mg/ML SDV 2 mL 4 MG IVP (22:52)
[2021-06-19 23:19] VITALS: BP 136/88; PULSE 70; RESP 16; O2SAT 96
[2021-06-20 00:19] LABS: Troponin 5 2HR 11.22 ng/L (0-15); Troponin 5 2HR Delta 1.22 ABS# (0-10)
[2021-06-20 00:30] VITALS: BP 134/75; PULSE 64; RESP 20; O2SAT 98
== END 2021-06-20 00:31 | disposition home or self-care (01) ==
PROVIDERS: Emergency Provider Emergency Medicine; PCP Family Medicine
DX: R07.9 Chest pain, unspecified (principal); Z79.01 Long term (current) use of anticoagulants; Z79.82 Long term (current) use of aspirin; I25.10 Atherosclerotic heart disease of native coronary artery without angina pectoris; Z95.1 Presence of aortocoronary bypass graft
CPT/HCPCS: 36415; 71045; 80053; 84484; 85025; 96374; 96375; 99283; J2270; J2405

== ENCOUNTER 2021-06-20 08:29 | Emergency (ER) | payer MEDICAID, SELFPAY ==
--- NOTE | 2021-06-20 08:35 | W.ED.CHESTPA ---
HPI - Chest Pain General: Chief Complaint: Chest Pain Stated Complaint: cp Time Seen by Provider: 06/20/21 08:35 History of Present Illness: HPI narrative: Mr Gregory is a 60-year-old gentleman with significant past medical history of CABG who presents to the emergency department due to chest pain. He reports symptoms of been going on for approximately 8 weeks. He denies specific provoking factor that he can recall though upon thought he does endorse that he was walking with a cane for a while however has subsequently stopped and pain is not improved. He reports right-sided rib pain which feels spasming and tightening in times sharp. There are no known provoking factors for the sharp feeling. Intensity at baseline is mild to moderate however worsens to severe with spasming/sharp pain. No other significant associated symptoms. Denies infectious symptoms. He has been seen multiple times for similar however no clear explanation has been found. Pertinent past history: coronary artery disease and CABG Onset (ago): month(s) Timing of current episode: episodic and constant Prior episodes: No Onset: other Pain location: right chest Severity: moderate Quality: sharp Relieving factors: nothing Exacerbating factors: inspiration Context: trauma/injury (using cane?) Review of Systems General: Reports: 10 or more systems reviewed and unremarkable except in HPI and below PFSH ED PFSH: Medical History Aortic stenosis Coronary artery disease Surgical History H/O aortic valvuloplasty Hx of CABG Social History Smoking and tobacco status: current every day smoker Physical Exam Const: COMMON NORMALS: alert GENERAL APPEARANCE: cooperative and well developed HENMT: COMMON NORMALS: normocephalic and atraumatic HEAD & SCALP: normocephalic and atraumatic Eye: COMMON NORMALS: conjunctivae normal CONJUNCTIVA: Yes conjunctivae normal SCLERA: sclerae normal Neck/C-Spine: COMMON NORMALS: supple GENERAL: Yes trachea midline Resp: COMMON NORMALS: normal respiratory effort EFFORT & INSPECTION: Yes able to speak in complete sentences Cardio: COMMON NORMALS: regular rate and regular rhythm RATE: regular rate RHYTHM: regular rhythm GI: COMMON NORMALS: Soft to palpation PALPATION: Yes Soft to palpation and No Tenderness to palpation present (GI) PERCUSSION: normal to percussion Extremity: GENERAL: Yes normal exam except as noted and No edema Neuro: COMMON NORMALS: moves all extremities SENSORIUM/ORIENTATION: Yes alert and No Orientation impaired Psych: COMMON NORMALS: mental status grossly normal and Normal thought process present THOUGHT PROCESS: Normal thought process present Skin: COMMON NORMALS: no rashes or lesions noted GENERAL SKIN EXAM: no rashes or lesions noted Course ED course: - Patient was seen and evaluated by me at bedside - Patient placed on cardiac monitors, IV access obtained - Initial evaluation notable for exam as above, no obvious cause externally for patient's pain. Uncomfortable appearing due to pain -Symptom treatment ordered - Labs notable for no leukocytosis. No acute metabolic derangement to explain symptoms. D-dimer and troponin negative. No repeat troponin needed given greater than 6 hours of symptoms - Imaging notable for negative chest x-ray - Upon serial reexamination after treatment the patient was improved - Based on patient history, evaluation, labs, and imaging as interpreted the most likely cause of the patient's condition is chest pain of uncertain etiology. Given history of smoking, increased shortness of breath and mild cough, possibility of localized irritation due to atypical infection which will be treated. Additionally patient does require further cardiac evaluation though this can be obtained in the outpatient setting given extremely atypical nature of symptoms for cardiac chest pain as well as the fact that we cannot perform inpatient stress test over the weekend. - The results of ED evaluation were discussed with the patient including prescriptions and/or symptomatic cares (if applicable) including appropriate and responsible use, followup plan, and return precautions. The patient verbalized understanding and felt safe for discharge. - Patient discharged in satisfactory condition. Note: Click bubbles or prepopulated ruano in note writing are used for assistance with data collection and billing and are inherently more limited than narrative and other text portions of this note. Please use narrative for additional clinical history and defer to narrative/free test for any case of contradictory information. If information appears in only free text or click bubble it should be considered present or absent as reported. Please contact note life underwriter for clarifications of clinical information or contradictory information. MDM is a brief summary, contradictory or erroneous seeming information should be clarified and full note should be reviewed. Vital Signs: Vital signs: Vital Signs Temperature 97.9 F 06/20/21 08:42 Pulse Rate 60 06/20/21 10:45 Respiratory Rate 15 06/20/21 10:45 Blood Pressure 116/73 06/20/21 10:45 Pulse Oximetry 96 06/20/21 10:45 MDM - Chest Pain MDM Narrative Medical decision making narrative: Mr Gregory presents with chest pain primarily involving the right chest however it is been present for an extended period of time. No overlying skin changes or obvious other causes on exam. Laboratory studies negative for leukocytosis, no significant metabolic abnormality to explain patient's symptoms. Troponin with greater than 6 hours of symptoms is negative. D-dimer negative. Chest x-ray without obvious cause to explain symptoms. Etiology is unclear however patient is high risk for atypical infection and description is largely pleurisy-like. Will treat for COPD exacerbation and referred for further outpatient evaluation. Medical Records Attestation: I reviewed the patient's medical records. Lab Data Attestation: I reviewed the patient's lab results. Result diagrams: 06/20/21 09:10 06/20/21 09:10 Labs: Lab Results 06/20/21 06/20/21 06/20/21 09:10 09:10 09:10 WBC 8.6 10^3/uL 10^3/uL (4.0-10.0) RBC 4.44 10^6/uL 10^6/uL (4.1-5.3) Hgb 14.2 g/dL g/dL (11.7-16.6) Hct 42.7 % % (42.0-52.0) MCV 96.2 fl H fl (80-94) MCH 32.0 pg pg (28.0-34.0) MCHC 33.3 g/dL g/dL (30.0-36.0) RDW 13.5 % % (12.1-15.1) Plt Count 269 10^3/cmm 10^3/cmm (130-400) MPV 10.8 fL H fL (7.4-10.4) Neut % (Auto) 61.9 % % Lymph % (Auto) 25.1 % % Elbert % (Auto) 8.0 % % Eos % (Auto) 3.7 % % Baso % (Auto) 1.0 % % Neut # (Auto) 5.33 10^3/uL 10^3/uL (1.8-7.7) Lymph # (Auto) 2.2 10^3/uL 10^3/uL (0.8-4.8) Elbert # (Auto) 0.7 10^3/uL 10^3/uL (0.2-0.9) Eos # (Auto) 0.3 10^3/uL 10^3/uL (0.0-0.8) Baso # (Auto) 0.1 10^3/uL 10^3/uL (0.0-0.1) Nucleated RBC % (auto) 0 % % Nucleated RBCs # 0.0 /100WBC /100WBC PT 23.80 SECONDS H SECONDS (12.1-14.9) INR 2.08 H (0.8-1.2) D-Dimer 0.45 ug/mIFEU ug/mIFEU (0-0.59) Sodium 135 mmol/L L mmol/L (136-145) Potassium 3.8 mmol/L mmol/L (3.5-5.1) Chloride 101 mmol/L mmol/L (98-107) Carbon Dioxide 23 mmol/L mmol/L (22-29) Anion Gap 14.8 (5-19) BUN 11 mg/dL mg/dL (6-20) Creatinine 0.6 mg/dL L mg/dL (0.7-1.2) GFR Calculation 138.4 mL/min H mL/min (90-130) Glucose 93 mg/dL mg/dL (65-115) Calculated Osmolality 279 mOsm/kg L mOsm/kg (285-295) Calcium 8.1 mg/dL L mg/dL (8.5-10.5) Total Bilirubin 0.2 mg/dL mg/dL (0.15-1.2) AST 22 U/L U/L (0-40) ALT 24 U/L U/L (0-41) Alkaline Phosphatase 75 IU/L IU/L (40-130) Troponin T Baseline Total Protein 6.3 g/dL L g/dL (6.6-8.7) Albumin 3.9 g/dL g/dL (3.5-5.2) Globulin 2.4 g/dL g/dL (1.3-4.6) Lipase 50 U/L U/L (13-60) 06/20/21 09:10 WBC RBC Hgb Hct MCV MCH MCHC RDW Plt Count MPV Neut % (Auto) Lymph % (Auto) Elbert % (Auto) Eos % (Auto) Baso % (Auto) Neut # (Auto) Lymph # (Auto) Elbert # (Auto) Eos # (Auto) Baso # (Auto) Nucleated RBC % (auto) Nucleated RBCs # PT INR D-Dimer Sodium Potassium Chloride Carbon Dioxide Anion Gap BUN Creatinine GFR Calculation Glucose Calculated Osmolality Calcium Total Bilirubin AST ALT Alkaline Phosphatase Troponin T Baseline 11 ng/L ng/L (0-15) Total Protein Albumin Globulin Lipase EKG Data^ EKG 1: Attestation: I personally reviewed and interpreted this EKG as follows: EKG interpretation date: 06/20/21 EKG interpretation time: 10:09 Ischemic changes: non-specific ST-T wave changes Interpretation: Twelve-lead EKG shows a regular rhythm and rate of 80. NM interval 169, QRS duration 112, QTc 419. Normal axis. Interpretation: Sinus rhythm. Discharge Plan Discharge Patient Disposition: Home Clinical Impression: Chest pain, Right-sided chest pain, COPD with exacerbation Condition: Stable Prescriptions: New oxycodone 5 mg tablet 5 mg PO Q4H PRN (Reason: pain) Qty: 6 0RF doxycycline hyclate 100 mg tablet 100 mg PO Q12H 7 Days Qty: 14 0RF No Action Ultram 50 mg tablet 50 mg PO Q12H PRN (Reason: pain) Qty: 15 0RF warfarin 7.5 mg Tablet 7.5 mg PO MoFr@2100 30 Days Qty: 9 1RF atorvastatin 40 mg tablet 40 mg PO DAILY 30 Days Qty: 30 1RF metoprolol succinate 50 mg tablet extended release 24 hr 50 mg PO DAILY 30 Days Qty: 30 1RF warfarin 5 mg tablet See Rx Instructions .ROUTE .COMPLEX 30 Days Qty: 22 1RF Rx Instructions: 5 mg orally on , Weds, , Sat, Sun 7.5mg orally on Wednesday & Wednesday aspirin 81 mg Tablet,Chewable 81 mg PO DAILY 30 Days Qty: 30 1RF hydrocodone-acetaminophen 5-325 mg tablet 1 tab PO Q6H PRN (Reason: pain) Qty: 14 0RF Discharge Orders: Discharge ED (Routine); Ordered 06/20/21 Ordered By: Jorge Luis Rajptu Referrals: Ulises Gonzalez MD [Primary Care Provider] - Discharge Diet: Usual diet Discharge Activity: Resume usual activity Patient Instructions: Chest Pain (ED), COPD (Chronic Obstructive Pulmonary Disease) (ED), Opioid Safety Activity Restrictions/Additional Instructions: Thank you for visiting the emergency department. You were seen and evaluated for right-sided chest pain. The exact cause of your symptoms is unclear however likely requires further outpatient evaluation. I will message our family service caseworker for cardiology follow-up. I will order an outpatient stress test. Given your history of smoking and likely COPD I will treat your pain and shortness of breath as COPD exacerbation. You may also use [id number] medications for your symptoms however please do not exceed the daily recommended dosage. Return to the emergency department for anything that you are concerned about and feel needs emergency department evaluation. Your INR is 2.08 today. Please notify your typical prescribing provider for continued adjustments. Coding Level of Care Code ED [employer]acker for Christel Fwd Exam Comprehensive
[2021-06-20 08:42] VITALS: BP 123/85; PULSE 86; RESP 14; TEMP 36.6; O2SAT 98; BMI 21.7
--- NOTE | 2021-06-20 08:42 | XR_ITS ---
WS: [id number] Exam: XR chest 1V portable [id number] Date/Time of Exam: 06/20/2021 8:42 AM Reason For Exam: chest pain Comparison 06/19/2021. The lungs are clear and fully inflated. Normal cardiomediastinal silhouette. Signs of previous CABG s urgery. No pleural effusions. Regional bony elements are intact. XR/XR chest 1V portable [id number] IMPRESSION: 1. No acute cardiopulmonary finding. No change since the last exam.
--- NOTE | 2021-06-20 08:42 | ECG_ITS ---
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 Measurements Intervals [place] Rate: 80 P: 85 AL: 169 QRS: 70 QRSD: 112 T: 91 QT: 384 QTc: 443 Interpretive Statements SINUS RHYTHM LEFT ATRIAL ENLARGEMENT [-0.15mV P-WAVE IN V1/V2] INDETERMINATE AXIS INCOMPLETE RIGHT BUNDLE BRANCH BLOCK [90+ ms QRS DURATION, TERMINAL R IN V1/V2, 40+ ms S IN I/aVL/V4/V5/V6] POSSIBLE LATERAL MYOCARDIAL INFARCTION , OF INDETERMINATE AGE [30 ms Q WAVE IN I/aVL/V5/V6] Compared to ECG 06/09/2021 22:54:06 Indeterminate axis now present Myocardial infarct finding now present Electronically Signed On 06-21-2021 14:07:15 DEPUTY COUNTY CLERK by Nayan Lewis M.D. [id number]
[2021-06-20 09:12] VITALS: BP 119/75; PULSE 80; RESP 24; O2SAT 98
[2021-06-20 09:22] LABS: Basophils # 0.1 10^3/uL (0.0-0.1); Eosinophils # 0.3 10^3/uL (0.0-0.8); Eosinophils % 3.7 %; Hematocrit 42.7 % (42.0-52.0); Hemoglobin 14.2 g/dL (11.7-16.6); Lymphocytes # 2.2 10^3/uL (0.8-4.8); Lymphocytes % 25.1 %; Mean Corpuscular HGB Conc 33.3 g/dL (30.0-36.0); Mean Corpuscular Volume 96.2 fl (80-94); Mean Platelet Volume 10.8 fL (7.4-10.4); Monocytes # 0.7 10^3/uL (0.2-0.9); Neutrophils # 5.33 10^3/uL (1.8-7.7); Neutrophils % 61.9 %; Nucleated Red Blood Cells % 0 %; Platelet Count 269 10^3/cmm (130-400); Red Blood Count 4.44 10^6/uL (4.1-5.3); Red Cell Distribution Width 13.5 % (12.1-15.1); White Blood Count 8.6 10^3/uL (4.0-10.0)
[2021-06-20 09:40] LABS: INR 2.08 (0.8-1.2)
[2021-06-20 09:41] VITALS: RESP 17; O2SAT 98
[2021-06-20] MEDS: morphine 4 mg/mL SDV 1 mL IVP (09:41)
[2021-06-20] MEDS: ketorolac 30 mg/mL INJ 15 MG IVP (09:41)
[2021-06-20 09:42] LABS: D Dimer 0.45 ug/mIFEU (0-0.59)
[2021-06-20 09:44] LABS: Alanine Aminotransferase 24 U/L (0-41); Albumin Level 3.9 g/dL (3.5-5.2); Alkaline Phosphatase 75 IU/L (40-130); Anion Gap 14.8 (5-19); Aspartate Amino Transferase 22 U/L (0-40); Blood Urea Nitrogen 11 mg/dL (6-20); Calcium 8.1 mg/dL (8.5-10.5); Carbon Dioxide 23 mmol/L (22-29); Chloride 101 mmol/L (98-107); Globulin 2.4 g/dL (1.3-4.6); Glomerular Filtration Rate 138.4 mL/min (90-130); Glucose 93 mg/dL (65-115); Lipase 50 U/L (13-60); Osmolality Calculated 279 mOsm/kg (285-295); Potassium 3.8 mmol/L (3.5-5.1); Sodium 135 mmol/L (136-145); Total Bilirubin 0.2 mg/dL (0.15-1.2); Total Protein 6.3 g/dL (6.6-8.7)
[2021-06-20 09:45] VITALS: BP 143/84; PULSE 72; RESP 17; O2SAT 97
[2021-06-20 09:49] LABS: Troponin(5th) Baseline 11 ng/L (0-15)
[2021-06-20 10:45] VITALS: BP 116/73; PULSE 60; RESP 15; O2SAT 96
--- NOTE | 2021-06-26 10:48 | DCPLANNER ---
Addendum entered by Radha Salcedo 09/18/21 14:20: Patient had a follow up appointment scheduled for 09.08.21 for an out patient stress test - patient did not attend appointment Patient had a follow up appointment scheduled for 07.08.21 with [facility] - patient did not attend appointment. Addendum entered by Radha Salcedo 06/26/21 11:19: technical programs manager also had message to schedule a follow up appointment for patient with [facility]. technical programs manager called [facility], spoke with Taryn, gave clinic patients information. A follow up appointment was scheduled for Thursday, July 08, 2021 at 2:[address] Werner. technical programs manager called patient and gave him the appointment information. Original Note: technical programs manager had message to schedule an outpatient stress test for patient. technical programs manager faxed signed order to centralized scheduling, who will call patient with appointment information.
== END 2021-06-20 11:16 | disposition home or self-care (01) ==
PROVIDERS: Emergency Provider Emergency Medicine; PCP Family Medicine
DX: J44.1 Chronic obstructive pulmonary disease with (acute) exacerbation (principal); R07.9 Chest pain, unspecified; I35.0 Nonrheumatic aortic (valve) stenosis; I25.10 Atherosclerotic heart disease of native coronary artery without angina pectoris; F17.200 Nicotine dependence, unspecified, uncomplicated; Z95.1 Presence of aortocoronary bypass graft; Z79.82 Long term (current) use of aspirin; Z79.01 Long term (current) use of anticoagulants; Z79.891 Long term (current) use of opiate analgesic
CPT/HCPCS: 71045; 80053; 83690; 84484; 85025; 85378; 85610; 93005; 96374; 96375; 99284; J1885; J2270